=== PATIENT | male | born 1980 | race Caucasian/White ===

== ENCOUNTER 2023-01-17 17:53 | Emergency (ER) | payer OTHER, SELFPAY ==
[2023-01-17] VITALS (8 sets, daily range): BP systolic 134–176; BP diastolic 92–106; PULSE 82–90; RESP 15–27; TEMP 36.3; O2SAT 87–100
--- NOTE | 2023-01-17 18:37 | PC.NURSE ---
accu check 517. pt states his meter has been showing high. states his goes up to 500. noticing blurred vision. weakness, increased thirst and urination.
[2023-01-17 18:46] LABS: Glucose Point of Care > 500 mg/dl (65-105)
[2023-01-17 18:50] LABS: Basophils Absolute Auto 0.1 K/mm3 (0.0-0.1); Eosinophils Absolute Auto 0.5 K/mm3 (0-0.3); Hematocrit 45.5 % (42.0-52.0); Hemoglobin 16.2 g/dL (14.0-18.0); Immature Granulocyte Absolute 0.07 K/mm3 (0.00-0.031); Immature Granulocyte Percent A 0.7 % (0-0.5); Lymphocytes Absolute Auto 2.84 K/mm3 (0.9-3.2); Lymphocytes Percent Auto 28.4 % (18.3-44.2); Mean Corpuscular HGB Conc 35.6 g/dl (32-36); Mean Corpuscular Hemoglobin 29.1 pg (26-34); Mean Corpuscular Volume 81.8 fl (80-100); Mean Platelet Volume 10.2 fl (7.4-10.4); Monocytes Absolute Auto 0.9 K/mm3 (0.1-0.6); Monocytes Percent Auto 8.9 % (2.6-8.5); Neutrophils Absolute Auto 5.6 K/mm3 (1.3-6.7); Platelet Count Result 200 k/mm3 (150-375); Red Blood Count 5.56 M/mm3 (4.6-6.20)
[2023-01-17 19:06] LABS: Beta-Hydroxybutyrate/Acetoacetate 0.08 mmol/L (0.02-0.27)
[2023-01-17 19:08] LABS: Alanine Aminotransferase 25 U/L (6-50); Albumin Level 4.9 g/dL (3.5-5.1); Alkaline Phosphatase 55 U/L (38-126); Anion Gap 14 mmol/L (8-16); Aspartate Amino Transferase 26 U/L (17-59); Bilirubin,Total 0.6 mg/dL (0.2-1.3); Blood Urea Nitrogen 17 mg/dL (9-20); Calcium 9.5 mg/dL (8.4-10.2); Carbon Dioxide 23 mmol/L (22-30); Chloride 93 mmol/L (98-107); Estimated CRCL calculation 134 ml/min; Estimated Glomerular Filt Rate > 60; Glucose 518 mg/dL (65-110); Magnesium 1.9 mg/dL (1.6-2.3); Phosphorus 5.1 mg/dL (2.5-4.5); Potassium 4.3 mmol/L (3.4-5.0); Sodium 130 mmol/L (137-145)
[2023-01-17 19:26] LABS: Glucose Point of Care 441 mg/dl (65-105)
[2023-01-17 19:26] LABS: Appearance Urine Clear (Clear); Bacteria Urine None Seen /hpf; Bilirubin Urine Negative (Negative); Blood Urine 1+ (Negative); Color Urine Yellow (Yellow); Glucose Urine UA 3+ mg/dL (Negative); Ketones Urine Negative (Negative); Leukocyte Esterase Ur 1+ LEU/UL (Negative); Need Manual Microscopic Reviewed; Nitrate Urine Negative (Negative); Non Pathogenic Casts 0-2; Protein Urine Negative (Negative); RBC Urine 0-2 /hpf (0-2); Specific Grav Ur 1.039 (1.001-1.035); Squamous Epithelial Cell Urine None seen /hpf (Few); Urobilinogen Urine 0.2 mg/dL (<2.0); WBC Urine >100 /hpf
[2023-01-17 19:27] LABS: Add Urine Microscopic? YES
--- NOTE | 2023-01-17 19:57 | ED.GENADULT ---
HPI - General Adult General Chief complaint: Unspecified Stated complaint: hyperglycemia- pump issues Time Seen by Provider: 01/17/23 19:11 History of Present Illness HPI narrative: Patient is a 42-year-old male with a history of diabetes presenting with hyperglycemia. Patient states that his insulin pump has run out of insulin and his insurance will not approve a refill for 4 more days. States that his sugars have been running very high and he is concerned. States that he feels thirsty. States he is unable to get into his PCP until February. 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 He denies chest pain, shortness of breath, abdominal pain, nausea or vomiting, diarrhea, dysuria, leg swelling, headaches, numbness or weakness. Related Data Allergies Allergy/AdvReac Type Severity Reaction Status Date / Time No Known Allergies Allergy Verified 01/17/23 21:36 Review of Systems Review of Systems: All systems reviewed & are unremarkable except as noted in HPI and below Exam Narrative: GENERAL: Well-appearing, well-nourished, and in no acute distress. Pleasant and cooperative HEAD: Normocephalic, atraumatic. EYES: PERRLA and EOMI. ENT: Nares clear, no rhinorrhea or epistaxis. Mucous membranes moist. NECK: Supple. CHEST: Clear to auscultation. No respiratory distress. HEART: Regular rate and rhythm ABDOMEN: Soft, nontender, nondistended EXTREMITIES: Normal range of motion. No edema. SKIN: Warm, dry, no rash. NEURO: No focal deficits. Alert and oriented x3. PSYCH: Normal mood and affect. Course Vital Signs Vital signs: Vital Signs Temperature 97.4 F L 01/17/23 18:34 Pulse Rate 88 01/17/23 18:34 Respiratory Rate 16 01/17/23 18:34 Blood Pressure 153/104 H 01/17/23 18:34 Pulse Oximetry 98 01/17/23 18:34 Temperature 97.4 F L 01/17/23 18:34 Pulse Rate 88 01/17/23 21:53 Respiratory Rate 15 01/17/23 21:53 Blood Pressure 146/92 H 01/17/23 21:53 Pulse Oximetry 100 01/17/23 21:53 Medical Decision Making MDM Narrative Medical decision making narrative: Patient is a 42-year-old male presenting with hyperglycemia. Vitals are stable. Exam remarkable for the above. Blood work with glucose of 518. Remainder of blood work is unremarkable. UA appears infected. Patient has been covered with IV antibiotics and has received a liter of fluids as well as subcutaneous insulin. Repeat [id number] glucose is in the 300s. Feel he is safe for outpatient management. We will get him started on Keflex and I have prescribed a new insulin pen for him to use until he can refill his insulin pump. Advised that he try to follow-up closely with his PCP and polymerization engineer. Appropriate return precautions given. Patient voiced understanding and is agreeable with plan. Discharged in stable condition. Differential Diagnosis Differential Diagnosis: DKA, hyperglycemia, UTI, HAYES, dehydration Medical Records Medical records reviewed: Yes I reviewed the external patient's medical records. Vital Signs Vital Signs: Vital Signs Temperature 97.4 F L 01/17/23 18:34 Pulse Rate 88 01/17/23 18:34 Respiratory Rate 16 01/17/23 18:34 Blood Pressure 153/104 H 01/17/23 18:34 Pulse Oximetry 98 01/17/23 18:34 Temperature 97.4 F L 01/17/23 18:34 Pulse Rate 88 01/17/23 21:53 Respiratory Rate 15 01/17/23 21:53 Blood Pressure 146/92 H 01/17/23 21:53 Pulse Oximetry 100 01/17/23 21:53 Lab Data Lab results reviewed: Yes I reviewed the patient's lab results. 01/17/23 18:43 01/17/23 18:43 Labs: Lab Results 01/17/23 01/17/23 01/17/23 Range/Units 18:36 18:43 18:48 WBC 10.0 (4.5-10.0) K/mm3 RBC 5.56 (4.6-6.20) M/mm3 Hgb 16.2 (14.0-18.0) g/dL Hct 45.5 (42.0-52.0) % MCV 81.8 (80-100) fl MCH 29.1 (26-34) pg MCHC 35.6 (32-36) g/dl RDW 12.0 (11.5-14.5) % Plt Count 200 (150-375) k/mm3 MPV 10.2 (7.
[2023-01-17] MEDS: INSULIN GLARGINE (*BKC) 100 UNITS/ML 17 UNITS SUB-Q (20:09)
[2023-01-17] MEDS: INSULIN HUMAN REGULAR (*BKC) 100 UNITS/ML 10 UNITS SUB-Q (20:10)
[2023-01-17] MEDS: LACTATED RINGERS 1,000 ML 999 ML IV CONT (20:11)
[2023-01-17 21:35] LABS: Glucose Point of Care 325 mg/dl (65-105)
== END 2023-01-17 21:54 | disposition home or self-care (01) ==
PROVIDERS: Emergency Medicine; Emergency Provider Emergency Medicine
DX: E11.65 Type 2 diabetes mellitus with hyperglycemia (principal); N39.0 Urinary tract infection, site not specified; Z79.4 Long term (current) use of insulin; Z96.41 Presence of insulin pump (external) (internal)
CPT/HCPCS: 36415; 80053; 81001; 82010; 82948; 83735; 84100; 85025; 87086; 96361; 96365; 99284; J0696; J1815; J7120

== ENCOUNTER 2023-01-18 15:01 | Emergency (ER) | payer OTHER, SELFPAY ==
[2023-01-18 15:10] VITALS: BP 136/86; PULSE 88; RESP 18; TEMP 36.2; O2SAT 97
[2023-01-18 15:16] VITALS: BP 139/104; PULSE 83; RESP 16; TEMP 36.8; O2SAT 99
[2023-01-18 15:21] LABS: Glucose Point of Care > 500 mg/dl (65-105)
--- NOTE | 2023-01-18 16:00 | ED.RECABL ---
HPI - Recheck/Abnormal Lab/Rx General Chief Complaint: Recheck/Abnormal Lab/Rx Stated Complaint: blood sugar is high Time Seen by Provider: 01/18/23 15:35 History of Present Illness HPI narrative: Patient is a 42-year-old male with a history of diabetes presenting with hyperglycemia. Patient was here yesterday and was sent home with antibiotics and a prescription for insulin. States that he picked up his antibiotics this morning but they were not able to fill the insulin. States that his blood sugar continues to be high. Denies further or new complaints. Related Data Allergies Allergy/AdvReac Type Severity Reaction Status Date / Time No Known Allergies Allergy Verified 01/17/23 21:36 Review of Systems Review of Systems: All systems reviewed & are unremarkable except as noted in HPI and below Exam Narrative: GENERAL: Well-appearing, well-nourished, and in no acute distress. HEAD: Normocephalic, atraumatic. EYES: PERRLA and EOMI. ENT: Nares clear, no rhinorrhea or epistaxis. Mucous membranes moist. NECK: Supple. CHEST: No respiratory distress. HEART: Regular rate and rhythm ABDOMEN: Soft, nondistended EXTREMITIES: Normal range of motion. No edema. SKIN: Warm, dry, no rash. NEURO: No focal deficits. Alert and oriented x3. PSYCH: Normal mood and affect. Course Vital Signs Vital signs: Vital Signs Temperature 97.1 F L 01/18/23 15:10 Pulse Rate 88 01/18/23 15:10 Respiratory Rate 18 01/18/23 15:10 Blood Pressure 136/86 01/18/23 15:10 Pulse Oximetry 97 01/18/23 15:10 Temperature 98.3 F 01/18/23 15:16 Pulse Rate 83 01/18/23 15:16 Respiratory Rate 16 01/18/23 15:16 Blood Pressure 139/104 H 01/18/23 15:16 Pulse Oximetry 99 01/18/23 15:16 MDM - Recheck/Abnormal Lab/Rx MDM Narrative Medical decision making narrative: Patient is a 42-year-old male presenting with hyperglycemia. Vitals are stable. Exam remarkable for the above. Patient was here yesterday with similar complaints. He was discharged with a prescription for insulin and Keflex. 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 I actually spoke with the pharmacy several hours ago to clear up any confusion and the pharmacist stated that she would be filling this prescription. Our charge nurse has called the pharmacy and apparently a woman picked up the prescription 1 hour ago. Patient's girlfriend said that maybe she did or maybe her mother did, she is not sure. Upon our discussion, the patient's girlfriend was able to text her mother who confirmed that she did, in fact, berry picker machine operator the patient's insulin. Advised the patient that he needs to start taking this as prescribed. We will give him a dose of subcutaneous insulin while he is here. He states that he was able to get his private insurance started as well so he should be double covered now. Care coordination spoke with the patient and advised that he call his insurance job titles to find an in network front office secretary and primary care provider. I will provide them with the number for our PCP and front office secretary just in case. Appropriate return precautions given. Patient voiced understanding and is agreeable with plan. Discharged in stable condition. Differential Diagnosis Differential diagnosis: Likely encounter for medication refill and other (Hyperglycemia) Medical Records Attestation: I reviewed the patient's medical records. Lab Data Attestation: I reviewed the patient's lab results. Labs: Lab Results 01/18/23 Range/Units 15:18 POC Capillary Glucose > 500 H* (65-105) mg/dl Critical Care Time Critical Care Time Critical Care Time: No Discharge Plan Discharge Clinical Impression: Hyperglycemia Patient Disposition: Home, Self-Care Condition: Stable Instructions: Antibiotic Form, Diabetic Hyperglycemia (ED) Additional Instructions: Please use your insu
[2023-01-18] MEDS: INSULIN HUMAN REGULAR (*BKC) 100 UNITS/ML 10 UNITS (16:59)
[2023-01-18 17:05] VITALS: BP 139/96; PULSE 83; RESP 16; O2SAT 95
== END 2023-01-18 17:06 | disposition home or self-care (01) ==
PROVIDERS: Emergency Provider Emergency Medicine
DX: E11.65 Type 2 diabetes mellitus with hyperglycemia (principal); Z79.4 Long term (current) use of insulin
CPT/HCPCS: 82948; 99283; J1815

== ENCOUNTER 2023-03-20 12:40 | Emergency (ER) | payer OTHER, SELFPAY ==
--- NOTE | ~2023-03-20 | XR_ITS ---
EXAMINATION: XR knee LT 3V DATE: 03/20/2023 13:01 INDICATION: Left knee pain. Fall. TECHNIQUE: 3 views of left knee were obtained. COMPARISON: None. FINDINGS: Bone alignment is normal. No fracture. There is mild tricompartmental osteoarthritis. There is a small knee joint effusion. IMPRESSION: 1. Mild left knee osteoarthritis. 2. Small left knee joint effusion. Reviewed, dictated and finalized at location A.
[2023-03-20 12:49] VITALS: BP 166/120; PULSE 96; RESP 16; TEMP 36.4; O2SAT 100
--- NOTE | 2023-03-20 12:55 | ED.LOWEXIN ---
HPI - Extremity Injury (Lower) General Chief Complaint: Extremity Injury, Lower Stated Complaint: Left knee pain Time Seen by Provider: 03/20/23 12:55 Source: patient, RN notes reviewed and old records reviewed Mode of arrival: ambulatory Limitations: no limitations History of Present Illness HPI Narrative: 42-year-old male presents to the [facility] with complaints of left knee pain and swelling. Patient states that he tripped yesterday landing on his knee. Mild swelling noted to the medial aspect of the left knee No treatment prior to arrival Onset (ago): day(s) (1) Related Data Home Medications Medication Instructions Recorded Confirmed erythromycin 250 mg 250 mg PO DIRECTED 03/20/23 03/20/23 capsule,delayed release insulin glargine 100 unit/mL (3 100 unit subcut DAILY 03/20/23 03/20/23 mL) subcutaneous pen (Lantus Solostar U-100 Insulin) insulin lispro 100 unit/mL See Rx Instructions .Route .COMPLEX 03/20/23 03/20/23 subcutaneous solution (Humalog U-100 Insulin) lisinopril 20 1 tablet PO DAILY 03/20/23 03/20/23 mg-hydrochlorothiazide 25 mg tablet metoprolol succinate 200 mg 200 mg PO DAILY 03/20/23 03/20/23 tablet,extended release 24 hr sucralfate 1 gram tablet 1 g PO DIRECTED 03/20/23 03/20/23 Allergies Allergy/AdvReac Type Severity Reaction Status Date / Time No Known Allergies Allergy Verified 03/20/23 13:02 Review of Systems Review of Systems: All systems reviewed & are unremarkable except as noted in HPI and below Constitutional: Constitutional: Reports no additional constitutional complaints Eyes: Eyes: Reports no additional eye complaints ENT: Reports system reviewed and no additional complaints, except as documented Cardiovascular: Cardiovascular: Reports no additional cardiovascular complaints, Denies chest pain and Denies dyspnea Respiratory: Respiratory: Reports no additional respiratory complaints, Denies chest congestion, Denies cough and Denies dyspnea Gastrointestinal: Gastrointestinal: Reports no additional gastrointestinal complaints, Denies abdominal pain, Denies nausea and Denies vomiting Musculoskeletal: Musculoskeletal: Reports as per HPI, Reports arthralgias and Reports joint swelling Integumentary/Breasts: Skin/Breast: Reports system reviewed and no additional complaints, except as docu Neurologic: Reports system reviewed and no additional complaints, except as documented Psychiatric: Psychiatric: Reports no additional psychiatric complaints Allergic/Immunologic: Allergic/Immunologic: Reports no additional allergic/immunologic complaints [facility] Past Medical History Medical History (Updated 03/20/23 @ 18:53 by Prema Virgen APRN) Diabetes Hypertension Comments At the time of my signature, I reviewed and agree with the nursing past medical, surgical, social, and family history. There is no relevant family history pertinent to the patient complaint. Exam Const: General: cooperative, healthy appearing, comfortable, no acute distress, well developed, alert and well nourished Nutritional Appearance: well nourished Orientation/consciousness: patient oriented x3 Limitations: no limitations HENMT: Head: normal to inspection Ears: hearing grossly normal bilaterally and external ears normal Face/Nose/Sinus: Normal external nose present, Normal nares present, Normal nasal mucous membranes and turbinates present, normal facial exam and face symmetric Face and sinus: normal facial exam and face symmetric Eyes: General: appearance normal, both eyes and all related structures Alignment and Position: alignment normal Periorbital: periorbital findings normal Pupils: Equal, round and reactive pupils present EOM: EOMs intact bilaterally Neck: Neck: normal visual inspection, full ROM, no lymphadenopathy and no meningeal signs Chest: Chest palpation & inspection: normal inspection of the chest Resp: Effort & Inspection: normal respiratory effort and able
== END 2023-03-20 13:17 | disposition home or self-care (01) ==
PROVIDERS: Emergency Provider Nurse Practitioner
DX: M25.462 Effusion, left knee (principal); M17.12 Unilateral primary osteoarthritis, left knee; E11.9 Type 2 diabetes mellitus without complications; Z79.4 Long term (current) use of insulin; I10 Essential (primary) hypertension
CPT/HCPCS: 73562; 99213; G0463

== ENCOUNTER 2023-07-26 19:31 | Emergency (ER) | payer OTHER, MEDICAID, SELFPAY ==
--- NOTE | ~2023-07-26 | XR_ITS ---
EXAMINATION: XR chest 2V DATE: 07/26/2023 20:04 INDICATION: Chest pain. TECHNIQUE: Frontal and lateral views of the chest were obtained. COMPARISON: None. FINDINGS: There is no pneumonia, pleural effusion, or pneumothorax. The heart size is normal. IMPRESSION: 1. No acute cardiopulmonary disease. Reviewed, dictated and finalized at location E. 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
--- NOTE | 2023-07-26 19:35 | ECG_ITS ---
Measurements Intervals [place] Rate: 105 P: 63 ID: 144 QRS: 24 QRSD: 88 T: 35 QT: 319 QTc: 423 Interpretive Statements SINUS TACHYCARDIA WITH OCCASIONAL SUPRAVENTRICULAR PREMATURE COMPLEXES BASELINE ARTIFACT ABNORMAL RHYTHM ECG NO PREVIOUS ECG AVAILABLE FOR COMPARISON Electronically Signed On 07-27-2023 16:18:33 WASHHOUSE HAND by Tyler Collins M.D.
[2023-07-26 19:43] VITALS: BP 149/96; PULSE 104; RESP 20; TEMP 36.4; O2SAT 98
[2023-07-26 20:00] LABS: Basophils Absolute Auto 0.1 K/mm3 (0.0-0.1); Basophils Percent Auto 0.7 % (0.2-1.2); Eosinophils Absolute Auto 0.4 K/mm3 (0-0.3); Eosinophils Percent Auto 3.6 % (0-4.4); Hematocrit 47.3 % (42.0-52.0); Hemoglobin 15.8 g/dL (14.0-18.0); Immature Granulocyte Absolute 0.04 K/mm3 (0.00-0.031); Immature Granulocyte Percent A 0.4 % (0-0.5); Lymphocytes Absolute Auto 2.65 K/mm3 (0.9-3.2); Lymphocytes Percent Auto 26.7 % (18.3-44.2); Mean Corpuscular HGB Conc 33.4 g/dl (32-36); Mean Corpuscular Hemoglobin 27.7 pg (26-34); Mean Corpuscular Volume 82.8 fl (80-100); Monocytes Absolute Auto 0.8 K/mm3 (0.1-0.6); Monocytes Percent Auto 7.7 % (2.6-8.5); Neutrophils Percent Auto 60.9 % (45.5-73.1); Platelet Count Result 215 k/mm3 (150-375); Red Blood Count 5.71 M/mm3 (4.6-6.20); Red Cell Distribution Width 12.3 % (11.5-14.5); White Blood Count 9.9 K/mm3 (4.5-10.0)
[2023-07-26 20:10] LABS: Alanine Aminotransferase 17 U/L (6-50); Albumin Level 4.4 g/dL (3.5-5.1); Alkaline Phosphatase 63 U/L (38-126); Anion Gap 7 mmol/L (8-16); Aspartate Amino Transferase 23 U/L (17-59); Bilirubin,Total 0.7 mg/dL (0.2-1.3); Blood Urea Nitrogen 15 mg/dL (9-20); Carbon Dioxide 27 mmol/L (22-30); Chloride 100 mmol/L (98-107); Estimated CRCL calculation 152 ml/min; Estimated Glomerular Filt Rate > 60; Glucose 199 mg/dL (65-110); Lipase 106 U/L (23-300); Potassium 3.9 mmol/L (3.4-5.0); Sodium 134 mmol/L (137-145)
[2023-07-26 20:11] LABS: INR 0.9; Partial Thromboplastin Time 26.2 SECONDS (22.3-36.8); Prothrombin Time 12.8 Seconds (11.1-14.7)
[2023-07-26 20:22] LABS: Troponin I < 0.012 ng/mL (0.000-0.034)
--- NOTE | 2023-07-26 23:27 | PC.NURSE ---
patient reports that he is feeling better and left from waiting room
== END 2023-07-26 23:27 | disposition left against medical advice (07) ==
LOC: ANHED 07-27 01:44
PROVIDERS: Emergency Provider Emergency Medicine
DX: R07.9 Chest pain, unspecified (principal)
CPT/HCPCS: 36415; 71046; 80053; 83690; 84484; 85025; 85610; 85730; 93005; 99199

== ENCOUNTER 2023-10-24 15:40 | Outpatient (CLI) | payer OTHER, MEDICAID, SELFPAY ==
[2023-10-24 16:42] LABS: Basophils Absolute Auto 0.06 K/mm3 (0.00-0.10); Basophils Percent Auto 0.5 % (0.0-1.0); Eosinophils Absolute Auto 0.29 K/mm3 (0.02-0.50); Eosinophils Percent Auto 2.6 % (1.0-6.0); Hematocrit 50.3 % (40.0-54.0); Hemoglobin 16.6 g/dL (14.0-18.0); Immature Granulocyte Absolute 0.06 K/mm3 (0.00-0.00); Immature Granulocyte Percent A 0.5 % (0.0-0.0); Lymphocytes Absolute Auto 2.53 K/mm3 (1.10-4.50); Lymphocytes Percent Auto 22.4 % (18.0-42.0); Mean Corpuscular Hemoglobin 27.2 pg (27.0-31.0); Mean Corpuscular Volume 82.5 fL (78.0-102.0); Mean Platelet Volume 10.4 fl (8.7-11.0); Monocytes Absolute Auto 0.76 K/mm3 (0.10-0.90); Monocytes Percent Auto 6.7 % (2.0-11.0); Neutrophils Absolute Auto 7.59 K/mm3 (1.70-7.20); Neutrophils Percent Auto 67.3 % (50.0-70.0); Platelet Count Result 235 K/mm3 (150-420); Red Cell Distribution Width 12.5 % (11.6-14.4); White Blood Count 11.3 K/mm3 (4.8-10.8)
[2023-10-24 23:18] LABS: Hemoglobin A1C 9.2 % (<5.7)
[2023-10-25] LABS: Alanine Aminotransferase 10 U/L (16-63); Albumin Level 4.4 g/dL (3.4-5.0); Alkaline Phosphatase 62 U/L (46-116); Anion Gap 12 mmol/L (4-12); Aspartate Amino Transferase 13 U/L (15-37); Bilirubin,Total 1.2 mg/dL (0.00-1.00); Blood Urea Nitrogen 39 mg/dL (7-18); Calcium 9.2 mg/dL (8.5-10.1); Carbon Dioxide 26 mmol/L (21-32); Chloride 93 mmol/L (98-108); Cholesterol 159 mg/dL (0-200); Estimated Glomerular Filt Rate 52; Free T4 Free Thyroxine 0.92 ng/dL (0.76-1.46); Glucose 269 mg/dL (70-99); HDL Direct 32 mg/dL (40-60); LDL Cholesterol Calculated 63 mg/dL (<130); Osmolality Calculated 290 mOsm/kg (285-295); Potassium 4.3 mmol/L (3.5-5.1); Sodium 131 mmol/L (136-145); Thyroid Stimulating Hormone 3.07 uIU/mL (0.36-3.74); Total Protein 7.5 g/dL (6.4-8.2); Triglycerides 322 mg/dL (0-150)
[2023-10-27 23:58] LABS: Vitamin D 25 Hydroxy 30 ng/mL (30-100)
== END 2023-10-24 15:41 | disposition home or self-care (01) ==
PROVIDERS: PCP Nurse Practitioner Family; Visit Provider Nurse Practitioner Family
DX: Z13.6 Encounter for screening for cardiovascular disorders (principal); E11.9 Type 2 diabetes mellitus without complications; Z79.899 Other long term (current) drug therapy; E78.5 Hyperlipidemia, unspecified; E04.9 Nontoxic goiter, unspecified; I10 Essential (primary) hypertension; Z68.32 Body mass index [BMI] 32.0-32.9, adult
CPT/HCPCS: 36415; 80053; 80061; 82306; 83036; 84439; 84443; 85025

== ENCOUNTER 2023-11-02 19:16 | Emergency (ER) | payer OTHER, MEDICAID, SELFPAY ==
[2023-11-02] VITALS (10 sets, daily range): BP systolic 126–139; BP diastolic 88–96; PULSE 95–112; RESP 17–24; TEMP 36.1; O2SAT 97–98
--- NOTE | ~2023-11-02 | XR_ITS ---
EXAMINATION: XR chest 1V portable Exam Date/Time: 11/02/2023 20:08 CDT HISTORY: LEFT SIDE CP X 27 HOURS Comparison: 07/26/2023. RESULT: Lines, tubes, and devices: None. Lungs and pleura: Clear. Cardiomediastinal silhouette: Stable. Other: No acute osseous or upper abdominal finding. IMPRESSION: No acute cardiopulmonary process. Reviewed, dictated and finalized at location K.
--- NOTE | 2023-11-02 19:23 | ECG_ITS ---
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 Measurements Intervals [place] Rate: 111 P: 59 OR: 135 QRS: 11 QRSD: 88 T: 28 QT: 307 QTc: 418 Interpretive Statements SINUS TACHYCARDIA WITH OCCASIONAL ECTOPIC PREMATURE COMPLEXES BASELINE ARTIFACT- I, II, III, AVR, AVL, AVF, V1 ABNORMAL ECG No previous ECG available for comparison Electronically Signed On 11-03-2023 13:28:19 CDT by Kasi Dumas D.O.
--- NOTE | 2023-11-02 19:45 | ED.CHESTPAIN ---
HPI - Chest Pain General Chief Complaint: Chest Pain Stated Complaint: Chest Pain Time Seen by Provider: 11/02/23 19:40 Source: patient Mode of arrival: ambulatory Limitations: no limitations History of Present Illness HPI narrative: 43-year-old male smoker with a history of anxiety / depression, hypertension, diabetes mellitus, dyslipidemia presents to the ER with a 1 day history of -- substernal chest pain radiating to the left and shoulder. The pain started yesterday and was rated at 5/10. It was unprovoked. He has had the pain off and on since yesterday but it got worse today and rated it as 9/10. the pain radiated to his left shoulder. No nausea/ vomiting. No diaphoresis. No shortness of breath. No lightheadedness . The patient called EMS gave him 3 tablets of Aspirin and 2 sublingual nitros. His pain decreased from 09/10 to 7/10 with the sublingual nitro. the patient had a negative stress test 2 years ago for chest pains. -- Increasing cough with sputum production over the past few days MD complaint: chest pain Onset (ago): day(s) ( One day) Timing of current episode: episodic Prior episodes: Yes Onset: during rest Pain location: substernal Pain radiation: left arm Severity: moderate Quality: aching Relieving factors: nothing Exacerbating factors: nothing Treatment prior to arrival: none Risk Factors Coronary artery disease risk factors: diabetes, smoking history, hyperlipidemia and hypertension Thoracic aortic dissection risk factors: longstanding hypertension Related Data Home Medications Medication Instructions Recorded Confirmed erythromycin 250 mg 250 mg PO DIRECTED 03/20/23 10/24/23 capsule,delayed release insulin glargine 100 unit/mL (3 100 unit subcut DAILY 03/20/23 10/24/23 mL) subcutaneous pen (Lantus Solostar U-100 Insulin) lisinopril 20 1 tablet PO DAILY 03/20/23 10/24/23 mg-hydrochlorothiazide 25 mg tablet metoprolol succinate 200 mg 200 mg PO DAILY 03/20/23 10/24/23 tablet,extended release 24 hr sucralfate 1 gram tablet 1 g PO DIRECTED 03/20/23 10/24/23 aspirin 81 mg tablet,delayed 81 mg PO DAILY 10/24/23 10/24/23 release atorvastatin 40 mg tablet 40 mg PO DAILY 10/24/23 10/24/23 dapagliflozin propanediol 10 mg 10 mg PO DAILY 10/24/23 10/24/23 tablet (Farxiga) prazosin 2 mg capsule 2 mg PO BID 10/24/23 10/24/23 Allergies Allergy/AdvReac Type Severity Reaction Status Date / Time Penicillins Allergy Severe Hives Verified 10/24/23 14:59 Review of Systems Review of Systems: All systems reviewed & are unremarkable except as noted in HPI and below Constitutional: Constitutional: Reports as per HPI and Reports no additional constitutional complaints Eyes: Eyes: Reports as per HPI and Reports no additional eye complaints ENT: Reports system reviewed and no additional complaints, except as documented and Reports as per HPI Cardiovascular: Cardiovascular: Reports as per HPI, Reports no additional cardiovascular complaints and Reports chest pain Comments: substernal chest pain radiating to the left shoulder Respiratory: Respiratory: Reports as per HPI, Reports no additional respiratory complaints and Reports cough Comments: patient has daily cough with sputum production. He has has this more more than a month Gastrointestinal: Gastrointestinal: Reports as per HPI and Reports no additional gastrointestinal complaints Genitourinary: Genitourinary: Reports no additional male genitourinary complaints Musculoskeletal: Musculoskeletal: Reports no additional musculoskeletal complaints and Reports as per HPI Integumentary/Breasts: Skin/Breast: Reports system reviewed and no additional complaints, except as docu and Reports as per HPI Neurologic: Reports system reviewed and no additional complaints, except as documented and Reports as per HPI Psychiatric: Psychiatric: Reports no additional psychiatric complaints and Reports as per HPI Endocrine: Endocrine
[2023-11-02 20:21] LABS: Basophils Absolute Auto 0.05 K/mm3 (0.00-0.10); Basophils Percent Auto 0.4 % (0.0-1.0); Eosinophils Percent Auto 1.6 % (1.0-6.0); Hematocrit 46.9 % (40.0-54.0); Hemoglobin 15.5 g/dL (14.0-18.0); Immature Granulocyte Absolute 0.07 K/mm3 (0.00-0.00); Immature Granulocyte Percent A 0.6 % (0.0-0.0); Lymphocytes Absolute Auto 2.75 K/mm3 (1.10-4.50); Lymphocytes Percent Auto 22.1 % (18.0-42.0); Mean Corpuscular Hemoglobin 27.6 pg (27.0-31.0); Mean Corpuscular Volume 83.6 fL (78.0-102.0); Mean Platelet Volume 9.7 fl (8.7-11.0); Monocytes Absolute Auto 0.71 K/mm3 (0.10-0.90); Monocytes Percent Auto 5.7 % (2.0-11.0); Neutrophils Absolute Auto 8.68 K/mm3 (1.70-7.20); Neutrophils Percent Auto 69.6 % (50.0-70.0); Platelet Count Result 232 K/mm3 (150-420); Red Blood Count 5.61 M/mm3 (4.70-6.10); Red Cell Distribution Width 12.6 % (11.6-14.4); White Blood Count 12.5 K/mm3 (4.8-10.8)
[2023-11-02 20:41] LABS: Lactic Acid Reflex 0.9 mmol/L (0.4-2.0)
[2023-11-02 20:50] LABS: Alanine Aminotransferase 11 U/L (16-63); Albumin Level 3.6 g/dL (3.4-5.0); Alkaline Phosphatase 58 U/L (46-116); Anion Gap 9 mmol/L (4-12); Aspartate Amino Transferase 15 U/L (15-37); Bilirubin,Total 0.4 mg/dL (0.00-1.00); Blood Urea Nitrogen 14 mg/dL (7-18); Calcium 9.2 mg/dL (8.5-10.1); Carbon Dioxide 32 mmol/L (21-32); Chloride 101 mmol/L (98-108); Estimated CRCL calculation 107 ml/min; Estimated Glomerular Filt Rate > 60; Glucose 119 mg/dL (70-99); Lipase 68 U/L (16-77); NT Pro B Type Natriuretic Pept 30 pg/mL (0-125); Osmolality Calculated 295 mOsm/kg (285-295); Potassium 4.3 mmol/L (3.5-5.1); Sodium 142 mmol/L (136-145); Total Protein 7.2 g/dL (6.4-8.2); Troponin I < 4.0 ng/L (0.00-60.4)
--- NOTE | 2023-11-02 20:50 | PC.NURSE ---
PATIENT UPDATE PROVIDED. PATIENT RESTING ON STRETCHER WITHOUT DISTRESS, USING CELL PHONE. PATIENT REPORTS HEADACHE. RN PROVIDED EDUCATION, NOTIFIED ERP. VSS. CALL LIGHT WITHIN REACH.
[2023-11-02] MEDS: KETOROLAC 30 MG/ML VIAL (*BKC) IV PUSH (21:22)
== END 2023-11-02 21:53 | disposition home or self-care (01) ==
PROVIDERS: Emergency Provider Internal Medicine Critical Care Medicine; PCP Nurse Practitioner Family
DX: R07.9 Chest pain, unspecified (principal); F41.9 Anxiety disorder, unspecified; J42 Unspecified chronic bronchitis; R05.9 Cough, unspecified; I10 Essential (primary) hypertension; E11.9 Type 2 diabetes mellitus without complications; E78.5 Hyperlipidemia, unspecified; F32.A Depression, unspecified; Z79.4 Long term (current) use of insulin; Z79.84 Long term (current) use of oral hypoglycemic drugs; Z79.82 Long term (current) use of aspirin; Z79.51 Long term (current) use of inhaled steroids
CPT/HCPCS: 36415; 71045; 80053; 83605; 83690; 83880; 84484; 85025; 93005; 96374; 99284; J1885

== ENCOUNTER 2023-11-29 08:32 | Outpatient (CLI) | payer OTHER, MEDICAID, SELFPAY ==
--- NOTE | ~2023-11-29 | NM_ITS ---
EXAM: NM gastric emptying study DATE: 11/29/2023 13:05 INDICATION: Nausea. TECHNIQUE: A gastric emptying study was performed using the methodology of Makayla DANG, et al. J Nucl Med 2007; 48:568-572. The patient was given a meal consisting of 2 scrambled eggs labeled with 1.029 mCi Tc-99m sulfur colloid, 2 slices of toast, two packages of jam, and approximately 120 mL of water . Simultaneous anterior and posterior 1-min images of the abdomen were obtained with the patient supi ne at multiple time points over a total period of 4 hours. The geometric mean of anterior and posteri or views was determined, and the percentage retention was calculated for each time point. COMPARISON: None. FINDINGS: Gastric retention of the radiotracer-labeled meal was 49%, 25%, and 5% at the 1-hour, 2-ho ur, and 4-hour time points, respectively. With this technique, apparent rapid gastric emptying is sug gested by <30% gastric retention at 1 hour. Delayed gastric emptying is defined by gastric retention of >90% at 1 hour, >60% retention at 2 hours, or >10% retention at 4 hours. IMPRESSION: 1. Normal gastric emptying. Reviewed, dictated and finalized at location A. IMPRESSION: 1. Normal gastric emptying.
== END 2023-11-29 08:33 | disposition home or self-care (01) ==
LOC: ANHIMG 08:34
PROVIDERS: PCP Nurse Practitioner Family; Visit Provider Nurse Practitioner Family
DX: R13.10 Dysphagia, unspecified (principal); R11.0 Nausea; R68.81 Early satiety
CPT/HCPCS: 78264; A9541

== ENCOUNTER 2024-01-02 15:02 | Emergency (ER) | payer MEDICAID, SELFPAY ==
--- NOTE | ~2024-01-02 | XR_ITS ---
EXAMINATION: XR chest 2V DATE: 01/02/2024 15:26 INDICATION: Chest pain. Hypertension. TECHNIQUE: PA and lateral views of the chest were obtained. COMPARISON: Chest radiograph dated 11/02/23 FINDINGS: The lungs remain clear with no focal airspace opacities, pulmonary edema, pleural effusion or pneumot horax. The cardiomediastinal silhouette is normal. Visualized bones and soft tissues are unremarkable . IMPRESSION: 1. No acute cardiopulmonary disease. Reviewed, dictated and finalized at location A.
--- NOTE | 2024-01-02 15:06 | ECG_ITS ---
Test Date: 2024-01-02 15:10:48 Measurements Intervals [place] Rate: 89 P: 59 RI: 146 QRS: 21 QRSD: 94 T: 37 QT: 340 QTc: 414 Interpretive Statements SINUS RHYTHM CONSIDER INFERIOR INFARCT, AGE INDETERMINATE ABNORMAL ECG Compared to ECG 11/02/2023 19:19:30 Sinus tachycardia no longer present Electronically Signed On 01-02-2024 15:11:58 CDT by Kasi Dumas D.O.
[2024-01-02 15:09] VITALS: BP 136/85; PULSE 92; RESP 24; TEMP 36.8; O2SAT 97
[2024-01-02 15:20] VITALS: O2SAT 100
[2024-01-02 15:35] LABS: Basophils Absolute Auto 0.1 K/mm3 (0.0-0.1); Basophils Percent Auto 0.7 % (0.2-1.2); Eosinophils Absolute Auto 0.5 K/mm3 (0-0.3); Hematocrit 45.2 % (42.0-52.0); Hemoglobin 15.8 g/dL (14.0-18.0); Immature Granulocyte Percent A 0.8 % (0-0.5); Lymphocytes Absolute Auto 2.82 K/mm3 (0.9-3.2); Lymphocytes Percent Auto 23.5 % (18.3-44.2); Mean Corpuscular Hemoglobin 28.9 pg (26-34); Mean Corpuscular Volume 82.6 fl (80-100); Mean Platelet Volume 10.4 fl (7.4-10.4); Monocytes Absolute Auto 0.8 K/mm3 (0.1-0.6); Monocytes Percent Auto 6.5 % (2.6-8.5); Neutrophils Absolute Auto 7.7 K/mm3 (1.3-6.7); Neutrophils Percent Auto 64.5 % (45.5-73.1); Platelet Count Result 214 k/mm3 (150-375); Red Blood Count 5.47 M/mm3 (4.6-6.20); Red Cell Distribution Width 12.8 % (11.5-14.5)
[2024-01-02] MEDS: ASPIRIN 81 MG CHEWABLE TABLET 324 MG PO (15:42)
[2024-01-02 15:45] LABS: INR 0.9; Prothrombin Time 12.8 Seconds (11.1-14.7)
[2024-01-02 15:46] LABS: Partial Thromboplastin Time 25.4 Seconds (22.3-36.8)
[2024-01-02 15:47] VITALS: BP 125/76; PULSE 90; RESP 20; O2SAT 99
[2024-01-02 16:13] LABS: Alanine Aminotransferase 11 U/L (6-50); Albumin Level 4.4 g/dL (3.5-5.1); Alkaline Phosphatase 77 U/L (38-126); Anion Gap 9 mmol/L (4-12); Aspartate Amino Transferase 18 U/L (17-59); Bilirubin,Total 0.7 mg/dL (0.2-1.3); Blood Urea Nitrogen 14 mg/dL (9-20); Calcium 9.3 mg/dL (8.4-10.2); Carbon Dioxide 29 mmol/L (22-30); Chloride 95 mmol/L (98-107); Estimated CRCL calculation 144 ml/min; Estimated Glomerular Filt Rate > 60; Glucose 417 mg/dL (65-110); Lipase 219 U/L (23-300); Potassium 4.1 mmol/L (3.4-5.0); Sodium 133 mmol/L (137-145)
[2024-01-02 16:19] LABS: Troponin I < 0.012 ng/mL (0.000-0.034)
[2024-01-02 16:29] VITALS: BP 134/76; PULSE 80; RESP 20; O2SAT 96
--- NOTE | 2024-01-02 16:41 | PC.NURSE ---
pressure dressing placed on wound to control bleeding. patient educated to not use the thumb and move it excessively while we wait for the bleeding to stop
[2024-01-02 17:14] LABS: Influenza A QL RT-PCR Negative (Negative); Influenza B QL RT-PCR Negative (Negative); RSV RNA, RT-PCR Negative (Negative); SARS-CoV-2 RNA PCR Negative (Negative)
--- NOTE | 2024-01-02 17:14 | ED.GENADULT ---
HPI - General Adult General Chief complaint: Chest Pain Stated complaint: chest pain, SOB Time Seen by Provider: 01/02/24 15:16 History of Present Illness HPI narrative: This is a 43-year-old male presenting ED with a chief complaint chest pain. Patient says the chest pain woke him from sleep this morning. He says it feels like elephant sitting on his chest. The pain is constant. He says he has had pain like this in the past when he had bronchitis. There are no exacerbating alleviating factors. It is associated with a productive cough. He denies fevers chills nausea vomiting diaphoresis or exertional component. Related Data Home Medications Medication Instructions Recorded Confirmed insulin glargine 100 unit/mL (3 100 unit subcut DIRECTED 03/20/23 12/26/23 mL) subcutaneous pen (Lantus Solostar U-100 Insulin) lisinopril 20 1 tablet PO DAILY 03/20/23 12/26/23 mg-hydrochlorothiazide 25 mg tablet metoprolol succinate 200 mg 200 mg PO DAILY 03/20/23 12/26/23 tablet,extended release 24 hr aspirin 81 mg tablet,delayed 81 mg PO DAILY 10/24/23 12/26/23 release atorvastatin 40 mg tablet 40 mg PO DAILY 10/24/23 12/26/23 dapagliflozin propanediol 10 mg 10 mg PO DAILY 10/24/23 12/26/23 tablet (Farxiga) gabapentin 300 mg capsule 300 mg PO BID 12/26/23 12/26/23 Allergies Allergy/AdvReac Type Severity Reaction Status Date / Time Penicillins Allergy Severe Hives Verified 01/02/24 15:13 [facility] Past Medical History Medical History Diabetes Hypertension Treadmill stress test negative for angina pectoris Social History Social History Smoking packs per day: 0.5 Smoking cigarettes per day: 10.0 Smoking status: Current every day smoker Tobacco type: cigarettes Alcohol intake: former Substance use: never Substance use type: does not use Living arrangements: alone Spiritual care concerns: No Exam Narrative: APPEARANCE: No apparent distress. Head: atraumatic. EYES: EOMI, NOSE: Atraumatic NECK: Trachea midline RESPIRATORY: No increased rate of breathing clear auscultation CARDIOVASCULAR: RRR, no peripheral edema ABDOMINAL: Non-distended soft nontender MUSCULOSKELETAl: No obvious deformities NEURO: Alert. Moving 4/4 extremities SKIN:: Warm, dry. Normal color PSYCHIATRIC: Normal affect Course Vital Signs Vital signs: Vital Signs Temperature 98.2 F 01/02/24 15:09 Pulse Rate 92 01/02/24 15:09 Respiratory Rate 24 H 01/02/24 15:09 Blood Pressure 136/85 01/02/24 15:09 Pulse Oximetry 97 01/02/24 15:09 Oxygen Delivery Room Air 01/02/24 15:09 Temperature 98.2 F 01/02/24 15:09 Pulse Rate 76 01/02/24 18:05 Respiratory Rate 18 01/02/24 18:05 Blood Pressure 126/80 01/02/24 18:05 Pulse Oximetry 97 01/02/24 18:05 Oxygen Delivery Room Air 01/02/24 15:20 Medical Decision Making MDM Narrative Medical decision making narrative: -Course: 43-year-old male presenting with chest discomfort. ACS workup negative. Lung exam clear. Chest x-ray without evidence of pneumonia. Viral swabs negative. Patient resting comfortably with no objective signs of respiratory distress. Patient informed of his results and instructed to follow up with primary care physician in 1-2 days. Given return precautions. After I discussed the patient's results with him he requested something for heartburn is he says he frequently has care -DDX includes but is not limited to: Bronchitis, ACS, pneumonia, pneumothorax -Co-morbidities complicating care: Hypertension, diabetes, high cholesterol -Independent interpretation of studies: White count 12, troponin undetectable. Independent EKG interpretation: Rhythm [sinus], Rate [89], [place] -[normal], [place] -[normal], QRS [narrow], QTC [normal], T waves -[negative for concerning inversions], ST Segments - [Negative for concerni
[2024-01-02] MEDS: ACETAMINOPHEN 500 MG TABLET 1000 MG PO (17:23)
[2024-01-02] MEDS: KETOROLAC 15 MG/ML VIAL (*BKC) IV PUSH (17:24)
[2024-01-02 18:05] VITALS: BP 126/80; PULSE 76; RESP 18; O2SAT 97
--- NOTE | 2024-01-02 18:17 | ECG_ITS ---
Test Date: 2024-01-02 18:27:31 Measurements Intervals [place] Rate: 77 P: 57 NV: 154 QRS: 24 QRSD: 100 T: 37 QT: 359 QTc: 407 Interpretive Statements SINUS RHYTHM INCOMPLETE RIGHT BUNDLE BRANCH BLOCK CONSIDER INFERIOR INFARCT, AGE INDETERMINATE ABNORMAL ECG Compared to ECG 01/02/2024 15:10:48 Electronically Signed On 01-02-2024 19:37:34 CDT by Kasi Dumas D.O.
[2024-01-02 19:02] LABS: Troponin I < 0.012 ng/mL (0.000-0.034)
[2024-01-02 19:39] VITALS: BP 130/79; PULSE 68; RESP 17; O2SAT 97
== END 2024-01-02 19:41 | disposition home or self-care (01) ==
PROVIDERS: Emergency Provider Emergency Medicine; PCP Family Medicine
DX: R07.89 Other chest pain (principal); Z20.822 Contact with and (suspected) exposure to COVID-19; E11.9 Type 2 diabetes mellitus without complications; Z79.4 Long term (current) use of insulin; I10 Essential (primary) hypertension
CPT/HCPCS: 36415; 71046; 80053; 83690; 84484; 85025; 85610; 85730; 87637; 93005; 96374; 99284; A9270; J1885

== ENCOUNTER 2024-01-10 15:02 | Emergency (ER) | payer MEDICAID, SELFPAY ==
--- NOTE | ~2024-01-10 | XR_ITS ---
EXAM: XR wrist RT min 3V DATE: 01/10/2024 15:33 HISTORY: pain x 1 hour hx of fracture . COMPARISON: None available. FINDINGS: Normal mineralization. No fracture or dislocation. No lytic or blastic lesion. Joint space s are maintained. No erosion or periosteal change. Soft tissues within normal limits. IMPRESSION: No acute osseous finding in the right wrist. Reviewed, dictated and finalized at location K.
--- NOTE | 2024-01-10 15:09 | ED.UPPEXIN ---
HPI - Extremity Injury (Upper) General Chief Complaint: Extremity Problem,Nontraumatic Stated Complaint: right wrist pain Time Seen by Provider: 01/10/24 15:17 Source: patient, RN notes reviewed and old records reviewed Mode of arrival: ambulatory Limitations: no limitations History of Present Illness HPI narrative: 43-year-old male presents to the [facility] with complaints of right wrist pain denies any injury happened just prior to arrival. 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 Patient reports history of fracture to the same wrist many years ago. Related Data Home Medications Medication Instructions Recorded Confirmed insulin glargine 100 unit/mL (3 100 unit subcut DIRECTED 03/20/23 01/10/24 mL) subcutaneous pen (Lantus Solostar U-100 Insulin) lisinopril 20 1 tablet PO DAILY 03/20/23 01/10/24 mg-hydrochlorothiazide 25 mg tablet metoprolol succinate 200 mg 200 mg PO DAILY 03/20/23 01/10/24 tablet,extended release 24 hr aspirin 81 mg tablet,delayed 81 mg PO DAILY 10/24/23 01/10/24 release atorvastatin 40 mg tablet 40 mg PO DAILY 10/24/23 01/10/24 dapagliflozin propanediol 10 mg 10 mg PO DAILY 10/24/23 01/10/24 tablet (Farxiga) gabapentin 300 mg capsule 300 mg PO BID 12/26/23 01/10/24 Allergies Allergy/AdvReac Type Severity Reaction Status Date / Time Penicillins Allergy Severe Hives Verified 01/10/24 15:11 Review of Systems Review of Systems: All systems reviewed & are unremarkable except as noted in HPI and below Constitutional: Constitutional: Reports no additional constitutional complaints Eyes: Eyes: Reports no additional eye complaints ENT: Reports system reviewed and no additional complaints, except as documented Cardiovascular: Cardiovascular: Reports no additional cardiovascular complaints, Denies chest pain and Denies dyspnea Respiratory: Respiratory: Reports no additional respiratory complaints, Denies chest congestion, Denies cough and Denies dyspnea Gastrointestinal: Gastrointestinal: Reports no additional gastrointestinal complaints, Denies abdominal pain, Denies nausea and Denies vomiting Musculoskeletal: Musculoskeletal: Reports as per HPI, Reports arthralgias and Denies joint swelling Integumentary/Breasts: Skin/Breast: Reports system reviewed and no additional complaints, except as docu Neurologic: Reports system reviewed and no additional complaints, except as documented Psychiatric: Psychiatric: Reports no additional psychiatric complaints Allergic/Immunologic: Allergic/Immunologic: Reports no additional allergic/immunologic complaints [facility] Past Medical History Medical History Diabetes Hypertension Treadmill stress test negative for angina pectoris Social History Social History Smoking packs per day: 0.5 Smoking cigarettes per day: 10.0 Smoking status: Current every day smoker Tobacco type: cigarettes Alcohol intake: former Substance use: never Substance use type: does not use Living arrangements: alone Spiritual care concerns: No Comments At the time of my signature, I reviewed and agree with the nursing past medical, surgical, social, and family history. There is no relevant family history pertinent to the patient complaint. Exam Const: General: cooperative, healthy appearing, comfortable, no acute distress, well developed, alert and well nourished Nutritional Appearance: well nourished Orientation/consciousness: patient oriented x3 Limitations: no limitations HENMT: Head: normal to inspection Ears: hearing grossly normal bilaterally and external ears normal Face/Nose/Sinus: Normal external nose present, Normal nares present, Normal nasal mucous membranes and turbinates present, normal facial exam and face symmetric Face and sinus: normal facial exam and face symmetric Eyes: General: appearance normal, amina
[2024-01-10 15:10] VITALS: BP 119/76; PULSE 91; RESP 14; TEMP 37; O2SAT 98
== END 2024-01-10 15:45 | disposition home or self-care (01) ==
PROVIDERS: Emergency Provider Nurse Practitioner; PCP Family Medicine
DX: S63.501A Unspecified sprain of right wrist, initial encounter (principal); S66.911A Strain of unspecified muscle, fascia and tendon at wrist and hand level, right hand, initial encounter; X58.XXXA Exposure to other specified factors, initial encounter; E11.9 Type 2 diabetes mellitus without complications; Z79.4 Long term (current) use of insulin; I10 Essential (primary) hypertension; Z79.82 Long term (current) use of aspirin
CPT/HCPCS: 73110; 99213; G0463

== ENCOUNTER 2024-03-06 08:00 | Outpatient (CLI) | payer OTHER, SELFPAY ==
[2024-03-06 08:33] LABS: Basophils Percent Auto 0.4 % (0.2-1.2); Eosinophils Absolute Auto 0.5 K/mm3 (0-0.3); Eosinophils Percent Auto 4.9 % (0-4.4); Hematocrit 46.3 % (42.0-52.0); Hemoglobin 15.7 g/dL (14.0-18.0); Immature Granulocyte Absolute 0.03 K/mm3 (0.00-0.031); Immature Granulocyte Percent A 0.3 % (0-0.5); Lymphocytes Absolute Auto 2.08 K/mm3 (0.9-3.2); Lymphocytes Percent Auto 22.2 % (18.3-44.2); Mean Corpuscular HGB Conc 33.9 g/dl (32-36); Mean Corpuscular Hemoglobin 28.3 pg (26-34); Mean Corpuscular Volume 83.6 fl (80-100); Mean Platelet Volume 10.5 fl (7.4-10.4); Monocytes Absolute Auto 0.8 K/mm3 (0.1-0.6); Monocytes Percent Auto 8.2 % (2.6-8.5); Platelet Count Result 194 k/mm3 (150-375); Red Blood Count 5.54 M/mm3 (4.6-6.20); Red Cell Distribution Width 12.2 % (11.5-14.5); White Blood Count 9.4 K/mm3 (4.5-10.0)
[2024-03-06 08:43] LABS: Alanine Aminotransferase 10 U/L (6-50); Albumin Level 4.3 g/dL (3.5-5.1); Alkaline Phosphatase 76 U/L (38-126); Anion Gap 9 mmol/L (4-12); Aspartate Amino Transferase 20 U/L (17-59); Bilirubin,Total 0.7 mg/dL (0.2-1.3); Blood Urea Nitrogen 8 mg/dL (9-20); Calcium 8.8 mg/dL (8.4-10.2); Carbon Dioxide 25 mmol/L (22-30); Chloride 102 mmol/L (98-107); Cholesterol 179 mg/dL (0-200); Estimated Glomerular Filt Rate > 60; Glucose 317 mg/dL (65-110); HDL Direct 35 mg/dL; Potassium 3.7 mmol/L (3.4-5.0); Sodium 136 mmol/L (137-145); Triglycerides 342 mg/dL (<150)
[2024-03-06 08:55] LABS: LDL Cholesterol Direct 87 mg/dL
[2024-03-06 09:12] LABS: Total Triiodothyronine (T3) 1.34 NG/ML (0.97-1.69)
[2024-03-06 09:23] LABS: Creatinine Urine 52.3 mg/dL
[2024-03-06 09:27] LABS: MALB Creatinine Ratio 13.2 mg/g (0-30); Microalbumin Urine Random 6.9 mg/L (0-16.7)
[2024-03-06 11:56] LABS: Hemoglobin A1C > 14.0 % (<5.7)
== END 2024-03-06 08:01 | disposition home or self-care (01) ==
PROVIDERS: PCP Family Medicine; Visit Provider Registered Nurse
DX: E11.9 Type 2 diabetes mellitus without complications (principal); I10 Essential (primary) hypertension; E78.5 Hyperlipidemia, unspecified; R53.83 Other fatigue
CPT/HCPCS: 36415; 80053; 80061; 82043; 83036; 84439; 84443; 84480; 85025

== ENCOUNTER 2024-03-23 09:34 | Emergency (ER) | payer OTHER, SELFPAY ==
--- NOTE | ~2024-03-23 | CT_ITS ---
CT of the Abdomen and Pelvis: Indication: Abdominal pain Technique: 2.5 mm axial scans were obtained through the abdomen and pelvis following intravenous adm inistration of 100 cc of Omnipaque 350. Dose reduction technique was used on this scan by utilizing a utomated exposure control and iterative reconstruction technique. The dose-length product (DLP) was 9 02.20 mGy-cm. Findings: Scans through the lung bases are unremarkable. The liver, spleen, pancreas, gallbladder, adrenals and kidneys are within normal limits. No evidence of aortic aneurysm. No lymphadenopathy. No bowel obstruction or bowel wall thickening. There is no evidence to suggest acute appendicitis. Images through the pelvis were performed. Urinary bladder unremarkable. No pelvic mass seen. No ascit es. Impression: No significant abnormalities seen. Reviewed, dictated and finalized at location . Impression: No significant abnormalities seen.
--- NOTE | ~2024-03-23 | XR_ITS ---
EXAMINATION: XR chest 2V 03/23/2024 09:59 INDICATION: Midline chest pain. Hypertension. PROCEDURE: 2 view chest COMPARISON: 12/24/2023 FINDINGS: The lungs are clear. The cardiomediastinal silhouette is within normal limits. There are no pleural effusions. There is no pneumothorax suspected. IMPRESSION: 1: NO ACUTE CARDIOPULMONARY DISEASE. Reviewed, dictated and finalized at location B.
--- NOTE | 2024-03-23 09:37 | ECG_ITS ---
Test Date: 2024-03-23 09:41:16 Measurements Intervals [place] Rate: 93 P: 59 [place]: 142 QRS: 23 QRSD: 94 T: 28 QT: 335 QTc: 417 Interpretive Statements SINUS RHYTHM INCOMPLETE RIGHT BUNDLE BRANCH BLOCK Compared to ECG 01/02/2024 18:27:31 NO SIGNIFICANT CHANGES Electronically Signed On 03-23-2024 13:42:39 CDT by Solis Mariee M.D.
[2024-03-23 09:38] VITALS: BP 156/105; PULSE 96; RESP 20; TEMP 36.5; O2SAT 98
[2024-03-23 09:43] VITALS: O2SAT 97
[2024-03-23 09:54] LABS: Basophils Absolute Auto 0.1 K/mm3 (0.0-0.1); Basophils Percent Auto 0.6 % (0.2-1.2); Eosinophils Absolute Auto 0.4 K/mm3 (0-0.3); Eosinophils Percent Auto 3.6 % (0-4.4); Hematocrit 45.5 % (42.0-52.0); Hemoglobin 15.7 g/dL (14.0-18.0); Immature Granulocyte Absolute 0.03 K/mm3 (0.00-0.031); Immature Granulocyte Percent A 0.3 % (0-0.5); Lymphocytes Percent Auto 23.1 % (18.3-44.2); Mean Corpuscular HGB Conc 34.5 g/dl (32-36); Mean Corpuscular Hemoglobin 29.2 pg (26-34); Mean Corpuscular Volume 84.6 fl (80-100); Mean Platelet Volume 9.8 fl (7.4-10.4); Monocytes Absolute Auto 0.7 K/mm3 (0.1-0.6); Monocytes Percent Auto 6.8 % (2.6-8.5); Neutrophils Absolute Auto 7.1 K/mm3 (1.3-6.7); Neutrophils Percent Auto 65.6 % (45.5-73.1); Platelet Count Result 208 k/mm3 (150-375); Red Blood Count 5.38 M/mm3 (4.6-6.20); Red Cell Distribution Width 12.3 % (11.5-14.5); White Blood Count 10.8 K/mm3 (4.5-10.0)
[2024-03-23 10:03] LABS: Alanine Aminotransferase 10 U/L (6-50); Albumin Level 4.4 g/dL (3.5-5.1); Alkaline Phosphatase 56 U/L (38-126); Anion Gap 6 mmol/L (4-12); Aspartate Amino Transferase 21 U/L (17-59); Bilirubin,Total 0.6 mg/dL (0.2-1.3); Blood Urea Nitrogen 12 mg/dL (9-20); Calcium 9.5 mg/dL (8.4-10.2); Carbon Dioxide 31 mmol/L (22-30); Chloride 100 mmol/L (98-107); Estimated CRCL calculation 163 ml/min; Estimated Glomerular Filt Rate > 60; Glucose 231 mg/dL (65-110); Lipase 114 U/L (23-300); Potassium 4.4 mmol/L (3.4-5.0); Sodium 137 mmol/L (137-145)
[2024-03-23 10:05] LABS: INR 0.9; Prothrombin Time 12.8 Seconds (11.1-14.7)
[2024-03-23 10:06] LABS: Partial Thromboplastin Time 25.4 Seconds (22.3-36.8)
[2024-03-23 10:14] LABS: Troponin I < 0.012 ng/mL (0.000-0.034)
--- NOTE | 2024-03-23 10:32 | ED.CHESTPAIN ---
HPI - Chest Pain General Chief Complaint: Chest Pain Stated Complaint: chest pain Time Seen by Provider: 03/23/24 10:05 Source: patient Mode of arrival: ambulatory Limitations: no limitations History of Present Illness HPI narrative: Patient is a 43-year-old male, with PMH of smoking, HTN, HLD, DM, GERD, who presents to the ED with reports of left-sided chest and abdomen pain. Patient reports he was at work this morning when he began having pain in his left-sided chest around 6:30 a.m.. He states the pain lasted for a few hours before improving on its own. He then went home from work. He began having some pain throughout his left-sided abdomen after that. States he denies any current chest pain, only complains of pain throughout his left-sided abdomen right now. states his symptoms feel somewhat similar to acid reflux. Reported having mild shortness of breath associated with the chest pain this morning. Denies any currently. Denies recent cough or cold symptoms. Does report rhinorrhea. Denies fevers. Denies lower extremity pain or swelling. Denies nausea, vomiting, diarrhea. Related Data Home Medications Medication Instructions Recorded Confirmed insulin glargine 100 unit/mL (3 100 unit subcut DIRECTED 03/20/23 01/11/24 mL) subcutaneous pen (Lantus Solostar U-100 Insulin) lisinopril 20 1 tablet PO DAILY 03/20/23 01/11/24 mg-hydrochlorothiazide 25 mg tablet metoprolol succinate 200 mg 200 mg PO DAILY 03/20/23 01/11/24 tablet,extended release 24 hr aspirin 81 mg tablet,delayed 81 mg PO DAILY 10/24/23 01/11/24 release atorvastatin 40 mg tablet 40 mg PO DAILY 10/24/23 01/11/24 dapagliflozin propanediol 10 mg 10 mg PO DAILY 10/24/23 01/11/24 tablet (Farxiga) gabapentin 300 mg capsule 300 mg PO BID 12/26/23 01/11/24 Allergies Allergy/AdvReac Type Severity Reaction Status Date / Time Penicillins Allergy Severe Hives Verified 01/11/24 12:02 Review of Systems Review of Systems: All systems reviewed & are unremarkable except as noted in HPI. All systems reviewed & are unremarkable except as noted in HPI and below PMFSH Past Medical History Medical History COPD (chronic obstructive pulmonary disease) Diabetes Hyperlipidemia Hypertension PTSD (post-traumatic stress disorder) Treadmill stress test negative for angina pectoris Social History Social History Smoking packs per day: 0.5 Smoking cigarettes per day: 10.0 Smoking status: Current every day smoker Tobacco type: cigarettes Alcohol intake: former Substance use: never Substance use type: does not use Living arrangements: alone Spiritual care concerns: No Exam Narrative: GENERAL: Appears older than stated age, obese with BMI of 31.6, non-toxic, in no acute distress. HEAD: Normocephalic, atraumatic. RESPIRATORY: Airway patent, respirations nonlabored. Clear to auscultation bilaterally, no rales, rhonchi, wheezing. No focal lung sounds. CARDIOVASCULAR: Regular rate and rhythm without murmurs, rubs, or gallops. ABDOMINAL: Soft, mild TTP in LLQ abd, L mid abdomen, no rebound, nondistended. Normoactive BS. MUSCULOSKELETAL: Moves all extremities. No gross deformities. mild TTP over L anterior chest wall, reproducing pain. No peripheral edema. SKIN: Warm, dry, normal color. NEURO: A&O X3. Speech clear. Cranial nerves II-XII grossly intact. No ataxic movements. PSYCHIATRIC: Appropriate mood and affect. Normal interaction. Course Vital Signs Vital signs: Vital Signs Temperature 97.7 F 03/23/24 09:38 Pulse Rate 96 03/23/24 09:38 Respiratory Rate 20 03/23/24 09:38 Blood Pressure 156/105 H 03/23/24 09:38 Pulse Oximetry 98 03/23/24 09:38 Oxygen Delivery Room Air 03/23/24 09:38 Temperature 97.7 F 03/23/24 09:38 Pulse Rate 82 03/23/24 13:24 Respiratory Rate 18
[2024-03-23] MEDS: BELLADONNA ALK/PHENOB ELIX 10 ML, MAG HYDROX/ALUMINUM HYD/SIMETH 30 ML, LIDOCAINE HCL 2... PO (11:14)
[2024-03-23 11:16] LABS: D Dimer 0.48 ug/mL (<0.48)
[2024-03-23 11:17] VITALS: BP 152/93; PULSE 87; RESP 17; O2SAT 99
--- NOTE | 2024-03-23 12:25 | ECG_ITS ---
Test Date: 2024-03-23 12:34:53 Measurements Intervals [place] Rate: 77 P: 59 [place]: 157 QRS: 25 QRSD: 93 T: 32 QT: 357 QTc: 406 Interpretive Statements SINUS RHYTHM INCOMPLETE RIGHT BUNDLE BRANCH BLOCK Compared to ECG 03/23/2024 09:41:16 NO SIGNIFICANT CHANGES Electronically Signed On 03-23-2024 13:46:12 CDT by Solis Mariee M.D.
[2024-03-23 12:59] LABS: Troponin I < 0.012 ng/mL (0.000-0.034)
[2024-03-23 13:24] VITALS: BP 148/99; PULSE 82; RESP 18; O2SAT 98
== END 2024-03-23 13:25 | disposition home or self-care (01) ==
PROVIDERS: Student in an Organized Health Care Education/Training Program; Emergency Provider Physician Assistant; PCP Family Medicine
DX: R07.89 Other chest pain (principal); R10.9 Unspecified abdominal pain; I10 Essential (primary) hypertension; E11.9 Type 2 diabetes mellitus without complications; E78.5 Hyperlipidemia, unspecified; J44.9 Chronic obstructive pulmonary disease, unspecified; K21.9 Gastro-esophageal reflux disease without esophagitis; F17.210 Nicotine dependence, cigarettes, uncomplicated; Z79.4 Long term (current) use of insulin; Z79.899 Other long term (current) drug therapy; Z79.82 Long term (current) use of aspirin; I45.10 Unspecified right bundle-branch block
CPT/HCPCS: 36415; 71046; 74177; 80053; 83690; 84484; 85025; 85380; 85610; 85730; 93005; 99284; A9270; Q9967

== ENCOUNTER 2024-03-30 11:44 | Emergency (ER) | payer OTHER, SELFPAY ==
--- NOTE | ~2024-03-30 | XR_ITS ---
EXAMINATION: XR chest 2V DATE: 03/30/2024 12:25 INDICATION: Productive cough. TECHNIQUE: Frontal and lateral views of the chest were obtained. COMPARISON: Chest 2 views 03/23/2024, CT abdomen and pelvis 03/23/2024 FINDINGS: There is no pneumonia, pleural effusion, or pneumothorax. The heart size is normal. IMPRESSION: 1. No acute cardiopulmonary disease. Reviewed, dictated and finalized at location A.
[2024-03-30 11:53] VITALS: BP 115/76; PULSE 88; RESP 18; TEMP 36.6; O2SAT 99
--- NOTE | 2024-03-30 12:07 | ED_ITS ---
HPI - URI/Sore Throat General Chief Complaint: Upper Respiratory Infection Stated Complaint: Sore Throat/Cough Time Seen by Provider: 03/30/24 12:07 Source: patient, RN notes reviewed and old records reviewed Mode of arrival: ambulatory Limitations: no limitations History of Present Illness HPI Narrative: Patient presents with 3 day history sinus congestion, chest congestion, cough, fatigue, subjective fever. He reports bod aches and headache. He denies any injury or trauma. He reports he has not been taking anything for his symptoms. He denies any shortness of breath. He reports symptoms are worse today than they have been the past couple of days. Related Data Home Medications Medication Instructions Recorded Confirmed insulin glargine 100 unit/mL (3 100 unit subcut DIRECTED 03/20/23 03/30/24 mL) subcutaneous pen (Lantus Solostar U-100 Insulin) lisinopril 20 1 tablet PO DAILY 03/20/23 03/30/24 mg-hydrochlorothiazide 25 mg tablet metoprolol succinate 200 mg 200 mg PO DAILY 03/20/23 03/30/24 tablet,extended release 24 hr aspirin 81 mg tablet,delayed 81 mg PO DAILY 10/24/23 03/30/24 release atorvastatin 40 mg tablet 40 mg PO DAILY 10/24/23 03/30/24 dapagliflozin propanediol 10 mg 10 mg PO DAILY 10/24/23 03/30/24 tablet (Farxiga) gabapentin 300 mg capsule 300 mg PO BID 12/26/23 03/30/24 Allergies Allergy/AdvReac Type Severity Reaction Status Date / Time Penicillins Allergy Severe Hives Verified 03/30/24 11:59 Review of Systems Review of Systems: All systems reviewed & are unremarkable except as noted in HPI and below Constitutional: Constitutional: Reports as per HPI, Reports no additional constitutional complaints, Reports body ache(s), Reports chills, Reports fatigue, Reports fever(s) and Reports lethargy ENT: Reports system reviewed and no additional complaints, except as documented, Reports nasal congestion, Reports nasal discharge, Reports sinus pressure and Reports sore throat Cardiovascular: Cardiovascular: Reports as per HPI and Reports no additional cardiovascular complaints Respiratory: Respiratory: Reports as per HPI, Reports no additional respiratory complaints, Reports chest congestion and Reports cough Gastrointestinal: Gastrointestinal: Reports no additional gastrointestinal complaints PMFSH Past Medical History Medical History COPD (chronic obstructive pulmonary disease) Diabetes Hyperlipidemia Hypertension PTSD (post-traumatic stress disorder) Treadmill stress test negative for angina pectoris Social History Social History Smoking packs per day: 0.5 Smoking cigarettes per day: 10.0 Smoking status: Current every day smoker Tobacco type: cigarettes Alcohol intake: former Substance use: never Substance use type: does not use Living arrangements: alone Spiritual care concerns: No Exam Const: General: cooperative, no acute distress, alert and awake Orientation/consciousness: oriented to person, oriented to place and oriented to time HENMT: Head: normal to inspection Ears: TM's normal bilaterally Mouth: Yes moist mucous membranes Throat: postnasal drainage Resp: Effort & Inspection: normal respiratory effort and able to speak in complete sentences Auscultation: clear to auscultation bilaterally, no crackles, no rales, no rhonchi and no wheezes Cardio: Palpation: normal PMI Rate: regular rate Rhythm: regular rhythm Heart sounds: S1 normal heart sound present and S2 normal heart sound present Neuro: General: oriented to person, oriented to place and oriented to time Cranial nerves: Yes CN's II-XII intact bilaterally Psych: Appearance: grossly normal Thought process: Normal thought process present Insight: Good insight present (Psych) Judgement: Good judgement present (Psych) Course Course Level of Care: Express Care Visit Vital Signs Vital signs: Vital Signs Temperature 98 F 03/30/24 11:53 Pulse Rate 88 03/30/24 11:53 Respiratory Rate 18 03/30/24 11:53 Blood Pressure 115/76 03/30/24 11:53 Pulse Oximetry 99 03/30/24 11:53 Oxygen Delivery Room Air 03/30/24 11:53 Temperature 98 F 03/30/24 11:53 Pulse Rate 88 03/30/24 11:53 Respiratory Rate 18 03/30/24 11:53 Blood Pressure 115/76 03/30/24 11:53 Pulse Oximetry 99 03/30/24 11:53 Oxygen Delivery Room Air 03/30/24 11:53 MDM - URI/Sore Throat MDM Narrative Medical decision making narrative: Negative COVID, negative flu, negative strep. Culture pending. Negative chest x-ray. Symptoms more than likely attributable to viral illness. Follow with primary care provider, emergency department with new or worse symptoms. Patient nontoxic appearing, stable for discharge home. Discharge instructions reviewed with patient, as well as provided in writing per nursing staff. The instructions also include specific and strict return/GO TO THE ER as well as f/u information. All questions have been answered, and the patient deny any further questions with discharge and discharge plan. Some parts of this dictation were generated by voice recognition software and may contain typographical and/or grammatical inaccuracies. Differential Diagnosis Differential diagnosis: Likely upper respiratory infection, otitis media, viral infection, influenza and pharyngitis Medical Records Attestation: I reviewed the patient's medical records. Lab Data Attestation: I reviewed the patient's lab results. Labs: Lab Results 03/30/24 Range/Units 12:23 POC Grp A Strep Screen Negative (Negative) Imaging Data Attestation: I personally reviewed and interpreted this imaging study as follows: My impression: negative Radiologist's impression: [place] [id number] XRay Report Signed Patient: Felix Lan : 1980 MR#: [id number] Age: 43 Acct:[id number] Loc: [facility] ADM Date: 03/30/24Attending Dr: Ordering Physician: Caro Lang FNP Date of Service: 03/30/24 Procedure(s): XR chest 2V Accession Number(s): [id number] cc: Caro Lang FNP; Mario Hartley MD~ EXAMINATION: XR chest 2V DATE: 03/30/2024 12:25 INDICATION: Productive cough. TECHNIQUE: Frontal and lateral views of the chest were obtained. COMPARISON: Chest 2 views 03/23/2024, CT abdomen and pelvis 03/23/2024 FINDINGS: There is no pneumonia, pleural effusion, or pneumothorax. The heart size is normal. IMPRESSION: 1. No acute cardiopulmonary disease. Reviewed, dictated and finalized at location A. Dictated By: Ward Ross MD 03/30/24 1225 Signed By: <Electronically signed by Ward Ross MD in [place]> 03/30/24 1226 Discharge Plan Discharge Clinical Impression: Viral infection Patient Disposition: Home, Self-Care Condition: Stable Instructions: Antibiotic Form, Viral Syndrome (ED) Additional Instructions: Take Tylenol per package instructions as needed for fever or discomfort. Follow-up with primary care provider. Emergency department for new or worse symptoms Patient Language: Grenadian Prescriptions: No Action metoprolol succinate 200 mg tablet extended release 24 hr 200 mg PO DAILY lisinopril-hydrochlorothiazide 20-25 mg tablet 1 tablet PO DAILY insulin glargine [Lantus Solostar U-100 Insulin] 100 unit/mL (3 mL) insulin pen 100 unit SUBCUT DIRECTED ondansetron HCl 4 mg tablet 4 mg PO Q8H PRN (Reason: nausea and vomiting) Qty: 20 1RF dapagliflozin propanediol [Farxiga] 10 mg tablet 10 mg PO DAILY atorvastatin 40 mg tablet 40 mg PO DAILY aspirin 81 mg tablet,delayed release (DR/EC) 81 mg PO DAILY (DME) Dexcom G6 Sensor Device See Rx Instructions .Route Qty: 9 2RF Rx Instructions: As directed pantoprazole 40 mg tablet,delayed release (DR/EC) 40 mg PO QHS Qty: 30 1RF famotidine [Pepcid] 20 mg tablet 20 mg PO BID 42 Days Qty: 84 0RF (DME) insulin syringe-needle,dispos. 0.5 mL 30 gauge x 5/16 syringe See Rx Instructions .Route Qty: 100 0RF Rx Instructions: As directed insulin lispro [Humalog U-100 Insulin] 100 unit/mL solution See Rx Instructions .ROUTE .COMPLEX Qty: 10 2RF Rx Instructions: Per insulin pump: sliding scale cholecalciferol (vitamin D3) 50 mcg (2,000 unit) capsule 50 mcg PO DAILY Qty: 30 2RF albuterol sulfate 90 mcg/actuation HFA aerosol inhaler See Rx Instructions .ROUTE .COMPLEX Qty: 18 1RF Dose Instruction: 1 PUFF INHALED EVERY 4 HOURS NEEDED FOR SHORTNESS OF BREATH OR WHEEZING Rx Instructions: 1 PUFF INHALED EVERY 4 HOURS NEEDED FOR SHORTNESS OF BREATH OR WHEEZING gabapentin 300 mg capsule 300 mg PO BID Rx Instructions: TAKE 1 CAPSULE BY MOUTH TWICE A DAY Follow-up/Referrals: Mario Hartley MD [Primary Care Provider] - 3 Days Stand Alone Forms: Work/School Release IP Time of Disposition: 12:54
[2024-03-30 12:25] LABS: EDSTREPNEGPOS1 Negative (Negative)
== END 2024-03-30 13:00 | disposition home or self-care (01) ==
PROVIDERS: Emergency Provider Nurse Practitioner Family; PCP Family Medicine
DX: B34.9 Viral infection, unspecified (principal); F17.210 Nicotine dependence, cigarettes, uncomplicated; J44.9 Chronic obstructive pulmonary disease, unspecified; E11.9 Type 2 diabetes mellitus without complications; Z79.4 Long term (current) use of insulin; I10 Essential (primary) hypertension; E78.5 Hyperlipidemia, unspecified; Z79.82 Long term (current) use of aspirin
CPT/HCPCS: 71046; 87081; 87880; 99213; G0463

== ENCOUNTER 2024-04-01 13:26 | Emergency (ER) | payer OTHER, SELFPAY ==
[2024-04-01 13:28] VITALS: BP 147/86; PULSE 105; RESP 16; TEMP 36.6; O2SAT 98
[2024-04-01 13:42] VITALS: O2SAT 98
[2024-04-01 14:06] LABS: Strep Group A RT-PCR NOT DETECTED (Negative)
[2024-04-01 14:18] LABS: Influenza A QL RT-PCR Negative (Negative); Influenza B QL RT-PCR Negative (Negative); RSV RNA, RT-PCR Negative (Negative); SARS-CoV-2 RNA PCR Negative (Negative)
--- NOTE | 2024-04-01 15:14 | ED_ITS ---
HPI - General Adult General Chief complaint: Upper Respiratory Infection Stated complaint: URI s/s Time Seen by Provider: 04/01/24 13:37 History of Present Illness HPI narrative: Patient is a 43-year-old male who presents ER with cold symptoms. He was seen a couple days ago in urgent care and had a negative viral swab and strep swab. He continues to have sinus congestion with sore throat and productive cough. No dyspnea. No chest pain. He has tried Mucinex without improvement. Related Data Home Medications Medication Instructions Recorded Confirmed insulin glargine 100 unit/mL (3 100 unit subcut DIRECTED 03/20/23 03/30/24 mL) subcutaneous pen (Lantus Solostar U-100 Insulin) lisinopril 20 1 tablet PO DAILY 03/20/23 03/30/24 mg-hydrochlorothiazide 25 mg tablet metoprolol succinate 200 mg 200 mg PO DAILY 03/20/23 03/30/24 tablet,extended release 24 hr aspirin 81 mg tablet,delayed 81 mg PO DAILY 10/24/23 03/30/24 release atorvastatin 40 mg tablet 40 mg PO DAILY 10/24/23 03/30/24 dapagliflozin propanediol 10 mg 10 mg PO DAILY 10/24/23 03/30/24 tablet (Farxiga) gabapentin 300 mg capsule 300 mg PO BID 12/26/23 03/30/24 Allergies Allergy/AdvReac Type Severity Reaction Status Date / Time Penicillins Allergy Severe Hives Verified 03/30/24 11:59 Review of Systems Constitutional: Constitutional: Reports no additional constitutional complaints ENT: Reports nasal congestion and Reports sore throat Cardiovascular: Cardiovascular: Reports no additional cardiovascular complaints Respiratory: Respiratory: Reports cough, Denies dyspnea and Denies wheezing Gastrointestinal: Gastrointestinal: Reports no additional gastrointestinal complaints [facility] Past Medical History Medical History COPD (chronic obstructive pulmonary disease) Diabetes Hyperlipidemia Hypertension PTSD (post-traumatic stress disorder) Treadmill stress test negative for angina pectoris Social History Social History Smoking packs per day: 0.5 Smoking cigarettes per day: 10.0 Smoking status: Current every day smoker Tobacco type: cigarettes Alcohol intake: former Substance use: never Substance use type: does not use Living arrangements: alone Spiritual care concerns: No Exam Narrative: GENERAL: Well-appearing, well-nourished, and in no acute distress. HEAD: Normocephalic, atraumatic. ENT: Mucous membranes moist. CHEST: Clear to auscultation. No respiratory distress. HEART: Regular rate and rhythm. Normal peripheral pulses. EXTREMITIES: Normal range of motion. No edema. NEURO: Alert and oriented x3. PSYCH: Normal mood and affect. Course Course Emergency Course: Patient resting comfortably. Discussed trying Flonase and humidified air to help with symptoms. Discharge home. Vital Signs Vital signs: Vital Signs Temperature 97.9 F 04/01/24 13:28 Pulse Rate 105 H 04/01/24 13:28 Respiratory Rate 16 04/01/24 13:28 Blood Pressure 147/86 H 04/01/24 13:28 Pulse Oximetry 98 04/01/24 13:28 Oxygen Delivery Room Air 04/01/24 13:28 Temperature 97.9 F 04/01/24 13:28 Pulse Rate 105 H 04/01/24 13:28 Respiratory Rate 16 04/01/24 13:28 Blood Pressure 147/86 H 04/01/24 13:28 Pulse Oximetry 98 04/01/24 13:42 Oxygen Delivery Room Air 04/01/24 13:42 Medical Decision Making Vital Signs Vital Signs: Vital Signs Temperature 97.9 F 04/01/24 13:28 Pulse Rate 105 H 04/01/24 13:28 Respiratory Rate 16 04/01/24 13:28 Blood Pressure 147/86 H 04/01/24 13:28 Pulse Oximetry 98 04/01/24 13:28 Oxygen Delivery Room Air 04/01/24 13:28 Temperature 97.9 F 04/01/24 13:28 Pulse Rate 105 H 04/01/24 13:28 Respiratory Rate 16 04/01/24 13:28 Blood Pressure 147/86 H 04/01/24 13:28 Pulse Oximetry 98 04/01/24 13:42 Oxygen Delivery Room Air 04/01/24 13:42 Lab Data Labs: Lab Results 04/01/24 Range/Units 13:33 Influenza A (RT-PCR) Negative (Negative) Influenza B (RT-PCR) Negative (Negative) RSV (RT-PCR) Negative (Negative) SARS-CoV-2 RNA (RT-PCR) Negative (Negative) Group A Strep (PCR) Not detected (Negative) Discharge Plan Discharge Clinical Impression: Viral infection Patient Disposition: Home, Self-Care Condition: Stable Instructions: Viral Syndrome (ED) Additional Instructions: As discussed you have a viral illness. Unfortunately there are no specific medications we can give you to make the illness end faster. Antibiotics do not work for viral illnesses. However, you can take Acetaminophen or Ibuprofen to help with fevers and pain. Stay well hydrated and rested. Return to the emergency department if your fevers and chills continue to worse after 5 days, if you develop worsening cough with thick sputum, or are unable to stay hydrated. Contact your primary care provider in the next few days for a re-evaluation and to make sure your symptoms are improving. Prescriptions: New fluticasone propionate [Allergy Relief (fluticasone)] 50 mcg/actuation spray,suspension 1 spray intranasal DAILY Qty: 16 0RF Rx Instructions: administer into each nostril No Action metoprolol succinate 200 mg tablet extended release 24 hr 200 mg PO DAILY lisinopril-hydrochlorothiazide 20-25 mg tablet 1 tablet PO DAILY insulin glargine [Lantus Solostar U-100 Insulin] 100 unit/mL (3 mL) insulin pen 100 unit SUBCUT DIRECTED ondansetron HCl 4 mg tablet 4 mg PO Q8H PRN (Reason: nausea and vomiting) Qty: 20 1RF dapagliflozin propanediol [Farxiga] 10 mg tablet 10 mg PO DAILY atorvastatin 40 mg tablet 40 mg PO DAILY aspirin 81 mg tablet,delayed release (DR/EC) 81 mg PO DAILY (DME) Dexcom G6 Sensor Device See Rx Instructions .Route Qty: 9 2RF Rx Instructions: As directed pantoprazole 40 mg tablet,delayed release (DR/EC) 40 mg PO QHS Qty: 30 1RF famotidine [Pepcid] 20 mg tablet 20 mg PO BID 42 Days Qty: 84 0RF (DME) insulin syringe-needle,dispos. 0.5 mL 30 gauge x 5/16 syringe See Rx Instructions .Route Qty: 100 0RF Rx Instructions: As directed insulin lispro [Humalog U-100 Insulin] 100 unit/mL solution See Rx Instructions .ROUTE .COMPLEX Qty: 10 2RF Rx Instructions: Per insulin pump: sliding scale cholecalciferol (vitamin D3) 50 mcg (2,000 unit) capsule 50 mcg PO DAILY Qty: 30 2RF albuterol sulfate 90 mcg/actuation HFA aerosol inhaler See Rx Instructions .ROUTE .COMPLEX Qty: 18 1RF Dose Instruction: 1 PUFF INHALED EVERY 4 HOURS NEEDED FOR SHORTNESS OF BREATH OR WHEEZING Rx Instructions: 1 PUFF INHALED EVERY 4 HOURS NEEDED FOR SHORTNESS OF BREATH OR WHEEZING gabapentin 300 mg capsule 300 mg PO BID Rx Instructions: TAKE 1 CAPSULE BY MOUTH TWICE A DAY Follow-up/Referrals: Mario Hartley MD [Primary Care Provider] - 1 Week
== END 2024-04-01 15:41 | disposition home or self-care (01) ==
PROVIDERS: Preventive Medicine Aerospace Medicine; Emergency Provider Emergency Medicine; PCP Family Medicine
DX: B34.9 Viral infection, unspecified (principal); Z79.4 Long term (current) use of insulin; Z79.82 Long term (current) use of aspirin; E11.9 Type 2 diabetes mellitus without complications; E78.5 Hyperlipidemia, unspecified; I10 Essential (primary) hypertension; J44.9 Chronic obstructive pulmonary disease, unspecified; F17.210 Nicotine dependence, cigarettes, uncomplicated; Z20.822 Contact with and (suspected) exposure to COVID-19
CPT/HCPCS: 87637; 87651; 99283

== ENCOUNTER 2024-04-18 09:15 | Outpatient (CLI) | payer OTHER, SELFPAY ==
--- NOTE | 2024-04-24 18:01 | WPDPFTINT ---
PFT Procedure Performed PFT Procedure Performed Spirometry with Pre/Post Bronchodilator Plethysmography (Lung Vol) Diffusing Cap (DLCO) Flow Vol Loop PFT Interpretation DOS: 04/18/2024 REQUESTING: Shahram Moctezuma APRN REASON FOR TESTING: Chronic cough PULMONARY FUNCTION TESTS Results are reliable and reproducible. Repeatability of spirometry FEV1 maneuver pre and post bronchodilator is Grade A. Spirometry: The pre-bronchodilator FEV1 is 3.85 L, 91%. The pre-bronchodilator FVC is 5.55 L, 104%. The FEV1/FVC ratio is 69%. After bronchodilator, the FEV1 is 3.10 L, 73%, -20%. The post-bronchodilator FVC is 5.27 L, 99%,-5%. The FEV1/FVC ratio is 59%, decreased. Lung volumes: The total lung capacity is 7.20 L, 101%. The residual volume is 1.65 L, 84%. The RV/TLC is 23%. Airway resistance is normal. Diffusion: DLCO is 25.7, 79%. The DLCO/VA is 4.5, 96%. Flow volume loop: The flow volume loop is normal. IMPRESSION: This study shows a moderate obstructive ventilatory defect without response to bronchodilator, normal lung volumes, and normal diffusion. Lack of response to bronchodilator should not preclude use if clinically indicated. There are no prior studies for comparison. Joan Ariza MD
== END 2024-04-18 09:16 | disposition home or self-care (01) ==
LOC: ANHPFT 09:16
PROVIDERS: PCP Family Medicine; Visit Provider Nurse Practitioner Family
DX: R05.3 Chronic cough (principal)
CPT/HCPCS: 94060; 94726; 94729

== ENCOUNTER 2024-06-08 11:00 | Outpatient (CLI) | payer OTHER, SELFPAY ==
[2024-06-08 12:27] LABS: Hemoglobin A1C 12.5 % (<5.7)
== END 2024-06-08 11:01 | disposition home or self-care (01) ==
LOC: ANHLAB 11:02
PROVIDERS: PCP Family Medicine; Visit Provider Family Medicine
DX: E11.9 Type 2 diabetes mellitus without complications (principal)
CPT/HCPCS: 36415; 83036

== ENCOUNTER 2024-08-04 13:16 | Emergency (ER) | payer OTHER, SELFPAY ==
[2024-08-04 13:19] VITALS: BP 122/97; PULSE 72; RESP 16; TEMP 37; O2SAT 98
== END 2024-08-04 14:29 | disposition left against medical advice (07) ==
PROVIDERS: PCP Family Medicine
DX: R11.2 Nausea with vomiting, unspecified (principal)
CPT/HCPCS: 99199

== ENCOUNTER 2024-08-05 11:11 | Emergency (ER) | payer OTHER, SELFPAY ==
[2024-08-05 11:24] VITALS: BP 144/84; PULSE 87; RESP 14; TEMP 37.1; O2SAT 97
--- NOTE | 2024-08-05 11:25 | ED.URI ---
HPI - URI/Sore Throat General Chief Complaint: Upper Respiratory Infection Stated Complaint: Sore Throat/Cough Time Seen by Provider: 08/05/24 11:25 Source: patient, RN notes reviewed and old records reviewed Mode of arrival: ambulatory Limitations: no limitations History of Present Illness HPI Narrative: Patient presents with complaints of sinus pain and pressure. He reports that symptoms have been present 1-2 weeks. Says that he was put on steroids about 1 week ago and had some improvement, but is now feeling worse again. He has not been taking any [id number] medications for his symptoms. He is not in any obvious distress. Related Data Home Medications ?Medication ?Instructions ?Recorded ?Confirmed ?Last Taken ?Type insulin glargine 100 unit/mL (3 100 unit subcut DIRECTED 03/20/23 05/08/24 Unknown History mL) subcutaneous pen (Lantus Solostar U-100 Insulin) lisinopril 20 1 tablet PO DAILY 03/20/23 05/08/24 Unknown History mg-hydrochlorothiazide 25 mg tablet metoprolol succinate 200 mg 200 mg PO DAILY 03/20/23 05/08/24 Unknown History tablet,extended release 24 hr aspirin 81 mg tablet,delayed 81 mg PO DAILY 10/24/23 05/08/24 Unknown History release atorvastatin 40 mg tablet 40 mg PO DAILY 10/24/23 05/08/24 Unknown History dapagliflozin propanediol 10 mg 10 mg PO DAILY 10/24/23 05/08/24 Unknown History tablet (Farxiga) paroxetine HCl 20 mg tablet 20 mg PO DAILY 04/05/24 05/08/24 Unknown History Allergies Allergy/AdvReac Type Severity Reaction Status Date / Time Penicillins Allergy Severe Hives Verified 08/05/24 11:16 Review of Systems Review of Systems: All systems reviewed & are unremarkable except as noted in HPI and below Constitutional: Constitutional: Reports no additional constitutional complaints and Reports lethargy ENT: Reports system reviewed and no additional complaints, except as documented, Reports nasal congestion, Reports nasal discharge, Reports sinus pain, Reports sinus pressure and Reports sore throat Cardiovascular: Cardiovascular: Reports no additional cardiovascular complaints Respiratory: Respiratory: Reports no additional respiratory complaints Gastrointestinal: Gastrointestinal: Reports no additional gastrointestinal complaints PMFSH Past Medical History Medical History COPD (chronic obstructive pulmonary disease) Treadmill stress test negative for angina pectoris Hyperlipidemia PTSD (post-traumatic stress disorder) Hypertension Diabetes Social History Social History Smoking packs per day: 0.5 Smoking cigarettes per day: 10.0 Smoking status: Current every day smoker Tobacco type: cigarettes Alcohol intake: former Substance use: never Substance use type: does not use Living arrangements: alone Spiritual care concerns: No Comments At the time of my signature, I reviewed and agree with the nursing past medical, surgical, social, and family history. There is no relevant family history pertinent to the patient complaint. Exam Const: General: cooperative, no acute distress, alert and awake Orientation/consciousness: oriented to person, oriented to place and oriented to time HENMT: Head: normal to inspection Ears: TM's normal bilaterally Face and sinus: sinus tenderness Resp: Effort & Inspection: normal respiratory effort and able to speak in complete sentences Auscultation: clear to auscultation bilaterally, no crackles, no rales, no rhonchi and no wheezes Cardio: Palpation: normal PMI Rate: regular rate Rhythm: regular rhythm Heart sounds: S1 normal heart sound present and S2 normal heart sound present Neuro: General: oriented to person, oriented to place and oriented to time Cranial nerves: Yes CN's II-XII intact bilaterally Psych: Appearance: grossly normal Thought process: Normal thought process present Insight: Good insight present (Psych) Judgement: Good judgement present (Psych) Course Course Level of Care: Express Care Visit Vital Signs Vital signs: Vital Signs Temperature 98.7 F 08/05/24 11:24 Pulse Rate 87 08/05/24 11:24 Respiratory Rate 14 08/05/24 11:24 Blood Pressure 144/84 H 08/05/24 11:24 Pulse Oximetry 97 08/05/24 11:24 Oxygen Delivery Room Air 08/05/24 11:24 Temperature 98.7 F 08/05/24 11:24 Pulse Rate 87 08/05/24 11:24 Respiratory Rate 14 08/05/24 11:24 Blood Pressure 144/84 H 08/05/24 11:24 Pulse Oximetry 97 08/05/24 11:24 Oxygen Delivery Room Air 08/05/24 11:24 Reviewed MDM - URI/Sore Throat MDM Narrative Medical decision making narrative: History and exam consistent with sinusitis. Patient is nontoxic appearing, stable for discharge home on p.o. antibiotic therapy. Next para Discharge instructions reviewed with patient, as well as provided in writing per nursing staff. The instructions also include specific and strict return/GO TO THE ER as well as f/u information. All questions have been answered, and the patient deny any further questions with discharge and discharge plan. Some parts of this dictation were generated by voice recognition software and may contain typographical and/or grammatical inaccuracies. Differential Diagnosis Differential diagnosis: Likely upper respiratory infection, otitis media and sinusitis Medical Records Attestation: I reviewed the patient's medical records. Discharge Plan Discharge Clinical Impression: Sinusitis Qualifiers: Sinusitis location: maxillary Chronicity: acute Recurrence: not specified as recurrent Qualified Code(s): J01.00 - Acute maxillary sinusitis, unspecified Patient Disposition: Home, Self-Care Condition: Stable Instructions: Antibiotic Form, Sinusitis (ED) Additional Instructions: Take medication as prescribed. Follow with primary care provider. Emergency department for new or worse symptoms Patient Language: Slovak Prescriptions: New doxycycline hyclate 100 mg capsule 100 mg PO BID Qty: 14 0RF No Action metoprolol succinate 200 mg tablet extended release 24 hr 200 mg PO DAILY lisinopril-hydrochlorothiazide 20-25 mg tablet 1 tablet PO DAILY insulin glargine [Lantus Solostar U-100 Insulin] 100 unit/mL (3 mL) insulin pen 100 unit SUBCUT DIRECTED ondansetron HCl 4 mg tablet 4 mg PO Q8H PRN (Reason: nausea and vomiting) Qty: 20 1RF paroxetine HCl 20 mg tablet 20 mg PO DAILY dapagliflozin propanediol [Farxiga] 10 mg tablet 10 mg PO DAILY atorvastatin 40 mg tablet 40 mg PO DAILY aspirin 81 mg tablet,delayed release (DR/EC) 81 mg PO DAILY (DME) Dexcom G6 Sensor Device See Rx Instructions .Route Qty: 9 2RF Rx Instructions: As directed pantoprazole 40 mg tablet,delayed release (DR/EC) 40 mg PO QHS Qty: 30 1RF famotidine [Pepcid] 20 mg tablet 20 mg PO BID 42 Days Qty: 84 0RF (DME) insulin syringe-needle,dispos. 0.5 mL 30 gauge x 5/16 syringe See Rx Instructions .Route Qty: 100 0RF Rx Instructions: As directed fluticasone propionate [Allergy Relief (fluticasone)] 50 mcg/actuation spray,suspension 1 spray intranasal DAILY Qty: 16 0RF Rx Instructions: administer into each nostril insulin lispro [Humalog U-100 Insulin] 100 unit/mL solution See Rx Instructions .ROUTE .COMPLEX Qty: 10 2RF Rx Instructions: Per insulin pump: sliding scale cholecalciferol (vitamin D3) 50 mcg (2,000 unit) capsule 50 mcg PO DAILY Qty: 30 2RF albuterol sulfate 90 mcg/actuation HFA aerosol inhaler See Rx Instructions .ROUTE .COMPLEX Qty: 18 1RF Dose Instruction: 1 PUFF INHALED EVERY 4 HOURS NEEDED FOR SHORTNESS OF BREATH OR WHEEZING Rx Instructions: 1 PUFF INHALED EVERY 4 HOURS NEEDED FOR SHORTNESS OF BREATH OR WHEEZING Anoro Ellipta 62.5-25 mcg/actuation blister with device 1 inh inhalation Q24H Qty: 60 5RF Follow-up/Referrals: Mario Hartley MD [Primary Care Provider] - 2 Weeks Stand Alone Forms: Work/School Release IP
[2024-08-05 11:45] LABS: EDCOVIDSCREEN Negative (Negative); EDINFLUASCREEN Negative (Negative); EDINFLUBSCREEN Negative (Negative); EDSTREPNEGPOS1 Negative (Negative)
== END 2024-08-05 11:45 | disposition home or self-care (01) ==
PROVIDERS: Emergency Provider Nurse Practitioner Family; PCP Family Medicine
DX: J01.00 Acute maxillary sinusitis, unspecified (principal); Z20.822 Contact with and (suspected) exposure to COVID-19; F17.210 Nicotine dependence, cigarettes, uncomplicated; J44.9 Chronic obstructive pulmonary disease, unspecified; E78.5 Hyperlipidemia, unspecified; I10 Essential (primary) hypertension; E11.9 Type 2 diabetes mellitus without complications; Z79.4 Long term (current) use of insulin; Z79.82 Long term (current) use of aspirin
CPT/HCPCS: 87081; 87426; 87804; 87880; 99213; G0463

== ENCOUNTER 2024-09-17 11:54 | Outpatient (CLI) | payer OTHER, SELFPAY ==
[2024-09-17 12:31] LABS: Basophils Absolute Auto 0.1 K/mm3 (0.0-0.1); Basophils Percent Auto 0.6 % (0.2-1.2); Eosinophils Absolute Auto 0.5 K/mm3 (0-0.3); Eosinophils Percent Auto 3.7 % (0-4.4); Hematocrit 48.3 % (42.0-52.0); Hemoglobin 15.9 g/dL (14.0-18.0); Immature Granulocyte Absolute 0.07 K/mm3 (0.00-0.031); Immature Granulocyte Percent A 0.6 % (0-0.5); Lymphocytes Absolute Auto 3.54 K/mm3 (0.9-3.2); Lymphocytes Percent Auto 27.8 % (18.3-44.2); Mean Corpuscular HGB Conc 32.9 g/dl (32-36); Mean Corpuscular Hemoglobin 27.7 pg (26-34); Mean Corpuscular Volume 84.3 fl (80-100); Mean Platelet Volume 10.1 fl (7.4-10.4); Monocytes Absolute Auto 0.8 K/mm3 (0.1-0.6); Monocytes Percent Auto 6.4 % (2.6-8.5); Neutrophils Absolute Auto 7.8 K/mm3 (1.3-6.7); Neutrophils Percent Auto 60.9 % (45.5-73.1); Platelet Count Result 238 k/mm3 (150-375); Red Blood Count 5.73 M/mm3 (4.6-6.20); Red Cell Distribution Width 12.8 % (11.5-14.5); White Blood Count 12.7 K/mm3 (4.5-10.0)
[2024-09-17 12:43] LABS: Alanine Aminotransferase 11 U/L (6-50); Albumin Level 4.3 g/dL (3.5-5.1); Alkaline Phosphatase 55 U/L (38-126); Anion Gap 8 mmol/L (4-12); Aspartate Amino Transferase 19 U/L (17-59); Bilirubin,Total 0.5 mg/dL (0.2-1.3); Blood Urea Nitrogen 16 mg/dL (9-20); Carbon Dioxide 29 mmol/L (22-30); Chloride 102 mmol/L (98-107); Cholesterol 180 mg/dL (0-200); Estimated Glomerular Filt Rate > 60; Glucose 134 mg/dL (65-110); HDL Direct 43 mg/dL; Potassium 3.9 mmol/L (3.4-5.0); Sodium 139 mmol/L (137-145); Triglycerides 136 mg/dL (<150)
[2024-09-17 12:55] LABS: Creatinine Urine 79.4 mg/dL; LDL Cholesterol Direct 106 mg/dL
[2024-09-17 12:56] LABS: Hemoglobin A1C 12.5 % (<5.7); MALB Creatinine Ratio 8.1 mg/g (0-30); Microalbumin Urine Random 6.4 mg/L (0-16.7)
[2024-09-17 13:12] LABS: Prostate Specific Antigen 0.7 ng/mL (< OR = 4.0)
--- OUTSIDE RECORDS SUMMARY | 2024-09-17 13:22 | XMS_ITS | Encounter Summary ---
Author Organization [facility] Address [address] [place] [address] Care Team Providers Care Air Quality Chemist Name Role Phone King Bingham MD Primary Care Provider [phone] Mario Hartley MD Primary Care Provider [phone] Encounter Details Date Type Department Care Team (Late st Contact Info) Description 05/21/[address] Conversion [address] [place], [place] [id number] , Generic Conversion, Social History Tobacco Use Types Packs/Day Years Used Date Smoking Tobacco: Never Assessed Sex and Gender Information Value Date Recorded Sex Assigned at Male 07/30/2024 11:26 PM DRUPAL ARCHITECT Legal Sex Male 8:15 AM CDT Gender Identity Not on file Sexual Orientation Not on file documented as of this encounter Plan of Treatment Not on file documented as of this encounter Visit Diagnoses Not on filedocumented in this encounter Care Teams Air Quality Chemist Relationship Specialty Start Date End Date King Bingham MD [address] [place] [phone] PCP - General FAMILY PRACTICE 01/24/18 07/29/24 Mario Hartley MD [address] [place] [address] PCP - General FAMILY PRACTICE 07/30/24 documented as of this encounter
--- OUTSIDE RECORDS SUMMARY | 2024-09-17 13:22 | XMS_ITS | Encounter Summary ---
Author Organization [facility] Address [address] [place] [address] Care Team Providers Care Tax Manager Cpa Name Role Phone King Bingham MD Primary Care Provider Mario Hartley MD Primary Care Provider [phone] Encounter Details Date Type Department Care Team (Late st Contact Info) Description 11/11/[address] Conversion [address] [place], [place] [id number] , Generic Conversion, Social History Tobacco Use Types Packs/Day Years Used Date Smoking Tobacco: Never Assessed Sex and Gender Information Value Date Recorded Sex Assigned at Male 07/30/2024 11:26 PM TAX MANAGER CPA Legal Sex Male 8:15 AM CDT Gender Identity Not on file Sexual Orientation Not on file documented as of this encounter Plan of Treatment Not on file documented as of this encounter Visit Diagnoses Not on filedocumented in this encounter Care Teams Tax Manager Cpa Relationship Specialty Start Date End Date King Bingham MD [address] [place] [phone] PCP - General FAMILY PRACTICE 01/24/18 07/29/24 Mario Hartley MD [address] [place] [address] PCP - General FAMILY PRACTICE 07/30/24 documented as of this encounter
--- OUTSIDE RECORDS SUMMARY | 2024-09-17 13:22 | XMS_ITS | Clinical Summary ---
Author Organization [facility] Address [address] [place] [address] Care Team Providers Care Managing Broker Name Role Phone Mario Hartley MD Primary Care Provider [phone] Allergies Active Allergy Reactions Criticality Noted Date Comments Metformin Diarrhea Low 02/08/2023 Does not tolerate Penicillins Hives Medium 04/11/2013 Shellfish Allergy Rash Low 04/19/2013 Vancomycin Hives Medium 08/03/2023 Medications No known medications Encounters Date Type Department Care Team Description 07/30/2024 11:11 PM PERSONAL DRIVER - 07/30/2024 11:53 PM PERSONAL DRIVER Emergency [facility] [place] [address] Latha Hess PA Flu Like Symptoms Discharge Disposition: Home or Self Care (Routine Discharge) 07/30/2024 Travel from Last 3 Months Social History Tobacco Use Types Packs/Day Years Used Date Smoking Tobacco: Never Assessed Sex and Gender Information Value Date Recorded Sex Assigned at Male 07/30/2024 11:26 PM PERSONAL DRIVER Legal Sex Male 8:15 AM CDT Gender Identity Not on file Sexual Orientation Not on file Last Filed Vital Signs Vital Sign Reading Time Taken Comments Blood Pressure 132/83 07/30/2024 11:01 PM PERSONAL DRIVER Pulse 88 07/30/2024 11:01 PM PERSONAL DRIVER Temperature 36.9 C (98.4 F) 07/30/2024 11:01 PM PERSONAL DRIVER Respiratory Rate 18 07/30/2024 11:0 1 PM PERSONAL DRIVER Oxygen Saturation 97% 07/30/2024 11: 01 PM PERSONAL DRIVER Inhaled Oxygen Concentration - - Weight 103.5 kg (228 lb 2.8 oz) 025 11:01 PM PERSONAL DRIVER Height 180.3 cm (5' 11 ) 07/30/2024 11: 01 PM PERSONAL DRIVER Body Mass Index 31.82 07/30/2024 11:01 PM PERSONAL DRIVER Plan of Treatment Health Maintenance Due Date Last Done Comments Colorectal Cancer Screening Colonoscopy (10 Years) 1979 Annual Physical 1982 Hepatitis C 1997 Hepatitis B Vaccines (1 of 3 - 19+ 3-dose series) 1998 DTaP, Tdap and Td Vaccines (2 - Td or Tdap) 05/14/2029 05/14/2019 Pneumococcal Vaccine: Pediatrics (0 to 5 Years) and At-Risk Patients (6 to 49 Years) Aged Out 04/11/2023, 05/14/2019 No longer eligibl e based on patient's age to complete this topic COVID-19 Vaccine Completed 03/23/2024, 11/2022, 04/13/2021, Additional history exists HPV Vaccines Aged Out No longer eligi ble based on patient's age to complete this topic Meningococcal B Vaccine Aged Out No l onger eligible based on patient's age to complete this topic Meningococcal Vaccine Aged Out No uma martin eligible based on patient's age to complete this topic RSV Immunizations Under 20 Months Aged Out No longer eligible based on patient's age to complete this topic Insurance [employer] [address] [id number] Care Teams Managing Broker Relationship Specialty Start Date End Date Mario Hartley MD [address] [place] [address] PCP - General FAMILY PRACTICE 07/30/24
[2024-09-17 13:55] LABS: Hepatitis C Virus Antibody Negative (Negative)
== END 2024-09-17 11:55 | disposition home or self-care (01) ==
LOC: ANHLAB 11:57
PROVIDERS: PCP Family Medicine; Visit Provider Family Medicine
DX: E78.5 Hyperlipidemia, unspecified (principal); I10 Essential (primary) hypertension; E11.40 Type 2 diabetes mellitus with diabetic neuropathy, unspecified
CPT/HCPCS: 36415; 80053; 80061; 82043; 83036; 84153; 85025; 86803

== ENCOUNTER 2024-09-29 14:45 | Emergency (ER) | payer OTHER, SELFPAY ==
--- NOTE | ~2024-09-29 | CT_ITS ---
CT abdomen pelvis w con Ordering provider: Dalia Aquino APRN History: 44 years Male with . abdominal pain, N V . Comparison: March 23, 2024 Technique: CT abdomen and pelvis with IV and without oral contrast. Automated exposure control and it erative reconstruction technique were employed. The dose-length product was 897.75 mGy-cm. 100 mL Omn ipaque 350 was given IV. Findings: VISUALIZED LOWER CHEST: Dependent atelectatic changes. UPPER ABDOMINAL ORGANS: Liver: Normal. Gallbladder: Normal. Spleen: Normal. Stomach/duodenum: Normal. Pancreas: Normal. Adrenals: Normal. Kidneys: Normal. PELVIC ORGANS: The bladder is underfilled. BOWEL AND MESENTERY: Colon: No evidence of diverticulitis.. Fecal material is loaded in the colon. Normal appendix. Small Bowel: Normal. No obstruction. Peritoneum/mesentery: No free air or free fluid. No mesenteric lymphadenopathy. RETROPERITONEUM: Normal aorta. No retroperitoneal lymphadenopathy. MUSCULOSKELETAL: Superficial soft tissues: Small fat-containing umbilical hernia. Otherwise, The superficial soft tiss ues are normal. Bones: Age appropriate degenerative changes of the spine. Bilateral sacroiliitis. Anterior fusion is noted.. IMPRESSION: 1. No evidence of appendicitis, diverticulitis or intestinal obstruction. 2. Constipation Reviewed, dictated and finalized at location A.
--- OUTSIDE RECORDS SUMMARY | 2024-09-29 14:47 | XMS_ITS | Encounter Summary ---
Author Organization [facility] Address [address] [place] [address] Care Team Providers Care Lpn Or Medical Assistant Name Role Phone King Bingham MD Primary Care Provider Mario Hartley MD Primary Care Provider [phone] Encounter Details Date Type Department Care Team (Late st Contact Info) Description 05/21/[address] Conversion [address] [place], [place] [id number] , Generic Conversion, Social History Tobacco Use Types Packs/Day Years Used Date Smoking Tobacco: Never Assessed Sex and Gender Information Value Date Recorded Sex Assigned at Male 07/30/2024 11:26 PM EMBROIDERY SPECIALIST Legal Sex Male 8:15 AM CDT Gender Identity Not on file Sexual Orientation Not on file documented as of this encounter Plan of Treatment Not on file documented as of this encounter Visit Diagnoses Not on filedocumented in this encounter Care Teams Lpn Or Medical Assistant Relationship Specialty Start Date End Date King Bingham MD [address] [place] [phone] PCP - General FAMILY PRACTICE 01/24/18 07/29/24 Mario Hartley MD [address] [place] [address] PCP - General FAMILY PRACTICE 07/30/24 documented as of this encounter
--- OUTSIDE RECORDS SUMMARY | 2024-09-29 14:47 | XMS_ITS | Clinical Summary ---
Author Organization [facility] Address [address] [place] [address] Care Team Providers Care Carpenter/Labor Name Role Phone Mario Hartley MD Primary Care Provider [phone] Allergies Active Allergy Reactions Criticality Noted Date Comments Metformin Diarrhea Low 02/08/2023 Does not tolerate Penicillins Hives Medium 04/11/2013 Shellfish Allergy Rash Low 04/19/2013 Vancomycin Hives Medium 08/03/2023 Medications No known medications Encounters Date Type Department Care Team Description 07/30/2024 11:11 PM CODING AUDITOR - 07/30/2024 11:53 PM CODING AUDITOR Emergency [facility] [place] [address] Latha Hess PA Flu Like Symptoms Discharge Disposition: Home or Self Care (Routine Discharge) 07/30/2024 Travel from Last 3 Months Social History Tobacco Use Types Packs/Day Years Used Date Smoking Tobacco: Never Assessed Sex and Gender Information Value Date Recorded Sex Assigned at Male 07/30/2024 11:26 PM CODING AUDITOR Legal Sex Male 8:15 AM CDT Gender Identity Not on file Sexual Orientation Not on file Last Filed Vital Signs Vital Sign Reading Time Taken Comments Blood Pressure 132/83 07/30/2024 11:01 PM CODING AUDITOR Pulse 88 07/30/2024 11:01 PM CODING AUDITOR Temperature 36.9 C (98.4 F) 07/30/2024 11:01 PM CODING AUDITOR Respiratory Rate 18 07/30/2024 11:0 1 PM CODING AUDITOR Oxygen Saturation 97% 07/30/2024 11: 01 PM CODING AUDITOR Inhaled Oxygen Concentration - - Weight 103.5 kg (228 lb 2.8 oz) 025 11:01 PM CODING AUDITOR Height 180.3 cm (5' 11 ) 07/30/2024 11: 01 PM CODING AUDITOR Body Mass Index 31.82 07/30/2024 11:01 PM CODING AUDITOR Plan of Treatment Health Maintenance Due Date [...] patient's age to complete this topic Insurance [employer] [address] [id number] Care Teams Carpenter/Labor Relationship Specialty Start Date End Date Mario Hartley MD [address] [place] [address] PCP - General FAMILY PRACTICE 07/30/24
--- OUTSIDE RECORDS SUMMARY | 2024-09-29 14:47 | XMS_ITS | Encounter Summary ---
Author Organization [facility] Address [address] [place] [address] Care Team Providers Care Repairer General Name Role Phone King Bingham MD Primary Care Provider Mario Hartley MD Primary Care Provider [phone] Encounter Details Date Type Department Care Team (Late st Contact Info) Description 11/11/[address] 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
[2024-09-29 14:55] VITALS: BP 166/99; PULSE 110; RESP 16; TEMP 36.5; O2SAT 97
--- NOTE | 2024-09-29 15:01 | ECG_ITS ---
Test Date: 2024-09-29 16:36:52 Measurements Intervals [place] Rate: 99 P: 68 PA: 155 QRS: 42 QRSD: 95 T: 37 QT: 332 QTc: 428 Interpretive Statements SINUS RHYTHM POSSIBLE LEFT ATRIAL ENLARGEMENT INCOMPLETE RIGHT BUNDLE BRANCH BLOCK BORDERLINE ECG Compared to ECG 03/23/2024 12:34:53 NO SIGNIFICANT CHANGE Electronically Signed On 09-29-2024 20:36:18 CDT by Kasi Dumas D.O.
--- NOTE | 2024-09-29 15:02 | ED_ITS ---
HPI - Abdominal Pain General Chief Complaint: Abdominal Pain Stated Complaint: abd pain, n/v Time Seen by Provider: 09/29/24 15:00 Focused HPI: Patient is a 39-year-old male who presents to the ER with complaints nausea, vomiting and abdominal pain that started around 4:00 a.m. this morning. He reports he is diabetic and his blood sugar has been low with the vomiting. Patient was transported to the ER by EMS and his blood sugar was 65 at that time. EMS gave patient oral glucagon. Patient denies any recent fevers, chest pain, shortness of breath, or urinary symptoms. His medical records indicate patient has a history of GERD, high blood pressure, hyperlipidemia, and asthma. He denies alcohol or drug use but does endorse cigarette smoking. GENERAL: Well-appearing, well-nourished, and in no acute distress. HEAD: Normocephalic, atraumatic. CHEST: Clear to auscultation. ?No respiratory distress. HEART: Tachycardia, regular rhythm.? NEURO: ?Alert and oriented x3. ABD: Generalized tenderness with palpation, + BS Patient screened in triage and initial orders placed.? ?Additional care and disposition to be based upon?diagnostic testing and treatment. Related Data Home Medications ?Medication ?Instructions ?Recorded ?Confirmed ?Last Taken ?Type aspirin 81 mg tablet,delayed 81 mg PO DAILY 10/24/23 08/29/24 Unknown History release paroxetine HCl 20 mg tablet 20 mg PO DAILY 04/05/24 08/29/24 Unknown History Allergies Allergy/AdvReac Type Severity Reaction Status Date / Time Penicillins Allergy Severe Hives Verified 09/29/24 14:45 Review of Systems 2 Review of Systems: All systems reviewed & are unremarkable except as noted in HPI and below PMFSH Past Medical History Medical History COPD (chronic obstructive pulmonary disease) Treadmill stress test negative for angina pectoris Hyperlipidemia PTSD (post-traumatic stress disorder) Hypertension Diabetes Social History Social History Smoking packs per day: 0.5 Smoking cigarettes per day: 10.0 Smoking status: Current every day smoker Tobacco type: cigarettes Alcohol intake: former Substance use: never Substance use type: does not use Do You Feel Safe in your Home?: Yes Lack of Transportation: No Lack of Food: Never True Current Housing: I Have Housing Concerned About Future Housing: No Difficulty Paying Gas/Electric Bills: No Difficulty Paying for Meds: No Currently Unemployed: No Education: High School Diploma/GED Difficulty w/ Childcare or Family Care: No Living arrangements: alone Spiritual care concerns: No Exam 2 Narrative: GENERAL: Well-appearing, well-nourished, and in no acute distress. HEAD: Normocephalic, atraumatic. CHEST: Clear to auscultation. ?No respiratory distress. HEART: Tachycardia, regular rhythm.? NEURO: ?Alert and oriented x3. ABD: Generalized tenderness with palpation, + BS Course Vital Signs Vital signs: Vital Signs Temperature 36.5 C 09/29/24 14:55 Pulse Rate 110 H 09/29/24 14:55 Respiratory Rate 16 09/29/24 14:55 Blood Pressure 166/99 H 09/29/24 14:55 Pulse Oximetry 97 09/29/24 14:55 Temperature 36.5 C 09/29/24 14:55 Pulse Rate 110 H 09/29/24 14:55 Respiratory Rate 16 09/29/24 14:55 Blood Pressure 166/99 H 09/29/24 14:55 Pulse Oximetry 97 09/29/24 14:55 MDM - Abdominal Pain MDM Narrative Medical decision making narrative: Patient is a 39-year-old male who presents to the ER with complaints nausea, vomiting and abdominal pain that started around 4:00 a.m. this morning. He reports he is diabetic and his blood sugar has been low with the vomiting. Patient was transported to the ER by EMS and his blood sugar was 65 at that time. EMS gave patient oral glucagon. Patient denies any recent fevers, chest pain, shortness of breath, or urinary symptoms. His medical records indicate patient has a history of GERD, high blood pressure, hyperlipidemia, and asthma. He denies alcohol or drug use but does endorse cigarette smoking. Labs Ordered: CBC, CMP, troponin, lipase, PTT, INR, UDS, UA Imaging Ordered: CT abdomen/pelvis Medications Ordered: 1L normal saline IV bolus, Zofran 4 mg IV Results: Patient's abdominal pelvis CT scan indicates 1. No evidence of appendicitis, diverticulitis or intestinal obstruction. 2. Constipation Diagnosis: Constipation, drug-induced nausea and vomiting, gastroenteritis, mild dehydration Patient Education/Shared MDM: Results of lab work and imaging shared with patient. He endorses improvement following medication administration. Will give patient Toradol and Bentyl prior to discharge for additional pain relief. Patient strongly advised to maintain hydration status upon discharge and follow- up with his PCP as soon as possible. He will be discharged home with a prescription for Zofran, Bentyl, MiraLax Senokot. Strict return precautions provided. Patient verbalized understanding and is in agreement with plan. Vital signs stable at time of discharge. All questions answered. Differential Diagnosis Differential diagnosis: Likely abdominal pain, acute appendicitis, calculus of kidney, constipation, diverticulitis, gastroenteritis and small bowel obstruction Lab Data Attestation: I reviewed the patient's lab results. 09/29/24 16:20 09/29/24 16:20 Labs: Lab Results 09/29/24 Range/Units 16:20 WBC 15.0 H (4.5-10.0) K/mm3 RBC 6.07 (4.6-6.20) M/mm3 Hgb 17.1 (14.0-18.0) g/dL Hct 51.2 (42.0-52.0) % MCV 84.3 (80-100) fl MCH 28.2 (26-34) pg MCHC 33.4 (32-36) g/dl RDW 12.6 (11.5-14.5) % Plt Count 242 (150-375) k/mm3 MPV 9.7 (7.4-10.4) fl Immature Gran % (Auto) 0.3 (0-0.5) % Neut % (Auto) 76.6 H (45.5-73.1) % Lymph % (Auto) 15.7 L (18.3-44.2) % [place] % (Auto) 6.5 (2.6-8.5) % Eos % (Auto) 0.6 (0-4.4) % Baso % (Auto) 0.3 (0.2-1.2) % Lymph # (Auto) 2.35 (0.9-3.2) K/mm3 [place] # (Auto) 1.0 H (0.1-0.6) K/mm3 Eos # (Auto) 0.1 (0-0.3) K/mm3 Baso # (Auto) 0.0 (0.0-0.1) K/mm3 Abs Immat Gran (auto) 0.05 H (0.00-0.031) K/mm3 Absolute Neuts (auto) 11.5 H (1.3-6.7) K/mm3 Absolute Nucleated RBC 0.000 (0.0-0.012) K/mm3 Nucleated RBC % 0.0 (0.0-0.2) % PT 12.8 (11.1-14.7) Seconds INR 0.9 APTT 26.9 (22.3-36.8) Seconds Sodium 141 (137-145) mmol/L Potassium 3.6 (3.4-5.0) mmol/L Chloride 98 (98-107) mmol/L Carbon Dioxide 33 H (22-30) mmol/L Anion Gap 10 (4-12) mmol/L BUN 12 (9-20) mg/dL Creatinine 0.68 L (0.7-1.3) mg/dL Estim Creat Clear Calc 144 ml/min Estimated GFR > 60 (59 - ) Glucose 86 (65-110) mg/dL Calcium 9.8 (8.4-10.2) mg/dL Total Bilirubin 0.8 (0.2-1.3) mg/dL AST 22 (17-59) U/L ALT 12 (6-50) U/L Alkaline Phosphatase 64 (38-126) U/L Troponin I < 0.012 (0.000-0.034) ng/mL Total Protein 8.0 (6.3-8.2) g/dL Albumin 4.7 (3.5-5.1) g/dL Lipase 66 (23-300) U/L Urine Color Dark yellow (Yellow) Urine Appearance Clear (Clear) Urine pH 7.5 (5.0-9.0) Ur Specific [place] 1.026 (1.001-1.035) Urine Protein 1+ H (Negative) mg/dL Urine Glucose (UA) Trace H (Negative) mg/dL Urine Ketones 1+ H (Negative) mg/dL Ur Blood (Man) Negative (Negative) Urine Nitrate Negative (Negative) Urine Bilirubin 1+ H (Negative) Urine Urobilinogen 1.0 (<2.0) mg/dL Leukocyte Esterase Rfl Trace H (Negative) KAILEY/UL Urine RBC 0-2 (0-2) /hpf Urine WBC 0-5 (0-3) /hpf Ur Squamous Epith Cells Few (Few) /hpf Urine Bacteria None seen /hpf Urine Casts 0-2 Urine Opiates Screen Negative (Negative) Urine Methadone Screen Negative (Negative) Ur Barbiturates Screen Negative (Negative) Ur Phencyclidine Scrn Negative (Negative) Ur Amphetamine Screen Negative (Negative) U Benzodiazepines Scrn Negative (Negative) Urine Cocaine Screen Negative (Negative) U Cannabinoids Screen Positive A (Negative) Imaging Data Attestation: I personally reviewed and interpreted this imaging study as follows: Radiologist's impression: ITS Impressions Abdomen/Pelvis CT 09/29/24 17:42 IMPRESSION: 1. No evidence of appendicitis, diverticulitis or intestinal obstruction. 2. Constipation Discharge Plan Discharge Clinical Impression: Gastroenteritis, Constipation, Dehydration, mild, Drug-induced nausea and vomiting Patient Disposition: Home Condition: Stable Instructions: Antibiotic Form, Constipation (ED), Gastroenteritis (ED), Abdominal Pain (ED) Additional Instructions: Please return to the ER with any worsening symptoms. Follow-up with primary care provider as soon as possible. Take all medications as prescribed, including regularly scheduled medications. Patient Language: Latvian Prescriptions: New ondansetron 4 mg tablet,disintegrating 4 mg PO Q8H Qty: 12 0RF dicyclomine 10 mg capsule 10 mg PO TID Qty: 12 0RF polyethylene glycol 3350 [Miralax] 17 gram/dose powder 17 g PO BID Qty: 238 0RF senna 8.6 mg capsule 8.6 mg PO BID PRN (Reason: constipation) Qty: 14 0RF No Action ondansetron HCl 4 mg tablet 4 mg PO Q8H PRN (Reason: nausea and vomiting) Qty: 20 1RF paroxetine HCl 20 mg tablet 20 mg PO DAILY (DME) Omnipod 5 G6-G7 Pods (Gen 5) Cartridge See Rx Instructions .ROUTE .MEDSUPPLY Qty: 45 2RF Rx Instructions: Change every 48hours atorvastatin 40 mg tablet 40 mg PO DAILY Qty: 90 1RF (DME) Dexcom G6 Sensor Device See Rx Instructions .Route Qty: 9 2RF Rx Instructions: As directed (DME) Dexcom G6 Transmitter Device See Rx Instructions .ROUTE .MEDSUPPLY Qty: 1 3RF Rx Instructions: Use to monitor glucose; change every 90 days cholecalciferol (vitamin D3) 50 mcg (2,000 unit) capsule 50 mcg PO DAILY Qty: 30 2RF dapagliflozin propanediol [Farxiga] 10 mg tablet 10 mg PO DAILY Qty: 90 1RF Trelegy Ellipta 100-62.5-25 mcg blister with device 1 inh inhalation DAILY Qty: 60 0RF insulin glargine [Lantus Solostar U-100 Insulin] 100 unit/mL (3 mL) insulin pen 45 unit SUBCUT DAILY PRN (Reason: insulin pump malfunction ) Qty: 15 1RF insulin lispro [Humalog U-100 Insulin] 100 unit/mL solution 120 unit continuous subcutaneous infusion DAILY Qty: 110 1RF lisinopril-hydrochlorothiazide 20-25 mg tablet 1 tablet PO DAILY Qty: 90 1RF metoprolol succinate 200 mg tablet extended release 24 hr 200 mg PO DAILY Qty: 90 1RF aspirin 81 mg tablet,delayed release (DR/EC) 81 mg PO DAILY pantoprazole 40 mg tablet,delayed release (DR/EC) 40 mg PO QHS Qty: 30 1RF famotidine [Pepcid] 20 mg tablet 20 mg PO BID 42 Days Qty: 84 0RF fluticasone propionate [Allergy Relief (fluticasone)] 50 mcg/actuation spray,suspension 1 spray intranasal DAILY Qty: 16 0RF Rx Instructions: administer into each nostril albuterol sulfate 90 mcg/actuation HFA aerosol inhaler See Rx Instructions .ROUTE .COMPLEX Qty: 18 1RF Dose Instruction: 1 PUFF INHALED EVERY 4 HOURS NEEDED FOR SHORTNESS OF BREATH OR WHEEZING Rx Instructions: 1 PUFF INHALED EVERY 4 HOURS NEEDED FOR SHORTNESS OF BREATH OR WHEEZING liraglutide [Victoza 3-Valerio] 0.6 mg/0.1 mL (18 mg/3 mL) pen injector 1.8 mg subcut .COMPLEX Qty: 18 1RF Rx Instructions: Start 0.6 mg once daily for 1 week, then increase 1.2mg daily for at least 1 week, then increase to 1.8mg daily Follow-up/Referrals: Mario Hartley MD [Primary Care Provider] - Stand Alone Forms: Work/School Release IP Time of Disposition: 18:38
[2024-09-29] MEDS: ONDANSETRON INJ 4 MG/2 ML VIAL IV PUSH (16:17)
[2024-09-29] MEDS: SODIUM CHLORIDE 0.9% IV 1,000 ML 999 ML IV CONT (16:17)
--- OUTSIDE RECORDS SUMMARY | 2024-09-29 16:17 | XMS_ITS | Encounter Summary ---
Author Organization [facility] Address [address] [place] [address] Care Team Providers Care Helper Shear Operator Name Role Phone King Bingham MD Primary Care Provider Mario Hartley MD Primary Care Provider [phone] Encounter Details Date Type Department Care Team (Late st Contact Info) Description 05/21/[address] 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
--- OUTSIDE RECORDS SUMMARY | 2024-09-29 16:17 | XMS_ITS | Clinical Summary ---
Author Organization [facility] Address [address] [place] [address] Care Team Providers Care Undraped Artist Model Name Role Phone Mario Hartley MD Primary Care Provider [phone] Allergies Active Allergy Reactions Criticality Noted Date Comments Metformin Diarrhea Low 02/08/2023 Does not tolerate Penicillins Hives Medium 04/11/2013 Shellfish Allergy Rash Low 04/19/2013 Vancomycin Hives Medium 08/03/2023 Medications No known medications Encounters Date Type Department Care Team Description 07/30/2024 11:11 PM ADVERTISING DISPLAY ROTATOR - 07/30/2024 11:53 PM ADVERTISING DISPLAY ROTATOR Emergency [facility] [place] [address] Latha Hess PA Flu Like Symptoms Discharge Disposition: Home or Self Care (Routine Discharge) 07/30/2024 Travel from Last 3 Months Social History Tobacco Use Types Packs/Day Years Used Date Smoking Tobacco: Never Assessed Sex and Gender Information Value Date Recorded Sex Assigned at Male 07/30/2024 11:26 PM ADVERTISING DISPLAY ROTATOR Legal Sex Male 8:15 AM CDT Gender Identity Not on file Sexual Orientation Not on file Last Filed Vital Signs Vital Sign Reading Time Taken Comments Blood Pressure 132/83 07/30/2024 11:01 PM ADVERTISING DISPLAY ROTATOR Pulse 88 07/30/2024 11:01 PM ADVERTISING DISPLAY ROTATOR Temperature 36.9 C (98.4 F) 07/30/2024 11:01 PM ADVERTISING DISPLAY ROTATOR Respiratory Rate 18 07/30/2024 11:0 1 PM ADVERTISING DISPLAY ROTATOR Oxygen Saturation 97% 07/30/2024 11: 01 PM ADVERTISING DISPLAY ROTATOR Inhaled Oxygen Concentration - - Weight 103.5 kg (228 lb 2.8 oz) 025 11:01 PM ADVERTISING DISPLAY ROTATOR Height 180.3 cm (5' 11 ) 07/30/2024 11: 01 PM ADVERTISING DISPLAY ROTATOR Body Mass Index 31.82 07/30/2024 11:01 PM ADVERTISING DISPLAY ROTATOR Plan of Treatment Health Maintenance Due Date [...] patient's age to complete this topic Insurance [employer] [address] [id number] Care Teams Undraped Artist Model Relationship Specialty Start Date End Date Mario Hartley MD [address] [place] [address] PCP - General FAMILY PRACTICE 07/30/24
--- OUTSIDE RECORDS SUMMARY | 2024-09-29 16:17 | XMS_ITS | Encounter Summary ---
Author Organization [facility] Address [address] [place] [address] Care Team Providers Care Molten Iron Pourer Name Role Phone King Bingham MD Primary Care Provider [phone] Mario Hartley MD Primary Care Provider [phone] Encounter Details Date Type Department Care Team (Late st Contact Info) Description 11/11/[address] 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
[2024-09-29 16:28] LABS: Basophils Percent Auto 0.3 % (0.2-1.2); Eosinophils Absolute Auto 0.1 K/mm3 (0-0.3); Eosinophils Percent Auto 0.6 % (0-4.4); Hematocrit 51.2 % (42.0-52.0); Hemoglobin 17.1 g/dL (14.0-18.0); Immature Granulocyte Absolute 0.05 K/mm3 (0.00-0.031); Immature Granulocyte Percent A 0.3 % (0-0.5); Lymphocytes Absolute Auto 2.35 K/mm3 (0.9-3.2); Lymphocytes Percent Auto 15.7 % (18.3-44.2); Mean Corpuscular HGB Conc 33.4 g/dl (32-36); Mean Corpuscular Hemoglobin 28.2 pg (26-34); Mean Corpuscular Volume 84.3 fl (80-100); Mean Platelet Volume 9.7 fl (7.4-10.4); Monocytes Percent Auto 6.5 % (2.6-8.5); Neutrophils Absolute Auto 11.5 K/mm3 (1.3-6.7); Neutrophils Percent Auto 76.6 % (45.5-73.1); Platelet Count Result 242 k/mm3 (150-375); Red Blood Count 6.07 M/mm3 (4.6-6.20); Red Cell Distribution Width 12.6 % (11.5-14.5)
[2024-09-29 16:35] LABS: Add Urine Microscopic? YES; Appearance Urine Clear (Clear); Bacteria Urine None Seen /hpf; Bilirubin Urine 1+ (Negative); Blood Urine Negative (Negative); Color Urine Dark Yellow (Yellow); Glucose Urine UA Trace mg/dL (Negative); Ketones Urine 1+ mg/dL (Negative); Leukocyte Esterase Ur Trace LEU/UL (Negative); Nitrate Urine Negative (Negative); Non Pathogenic Casts 0-2; Protein Urine 1+ mg/dL (Negative); RBC Urine 0-2 /hpf (0-2); Specific Grav Ur 1.026 (1.001-1.035); Squamous Epithelial Cell Urine Few /hpf (Few); WBC Urine 0-5 /hpf (0-3); pH Urine 7.5 (5.0-9.0)
[2024-09-29 16:40] LABS: Alanine Aminotransferase 12 U/L (6-50); Albumin Level 4.7 g/dL (3.5-5.1); Alkaline Phosphatase 64 U/L (38-126); Anion Gap 10 mmol/L (4-12); Aspartate Amino Transferase 22 U/L (17-59); Bilirubin,Total 0.8 mg/dL (0.2-1.3); Blood Urea Nitrogen 12 mg/dL (9-20); Calcium 9.8 mg/dL (8.4-10.2); Carbon Dioxide 33 mmol/L (22-30); Chloride 98 mmol/L (98-107); Estimated CRCL calculation 144 ml/min; Estimated Glomerular Filt Rate > 60; Glucose 86 mg/dL (65-110); Lipase 66 U/L (23-300); Potassium 3.6 mmol/L (3.4-5.0); Sodium 141 mmol/L (137-145)
[2024-09-29 16:50] LABS: Amphetamine Screen Urine Negative (Negative); Barbiturate Screen Urine Negative (Negative); Benzodiazepines Screen Urine Negative (Negative); Cannabinoid Screen Urine Positive (Negative); Cocaine Screen Urine Negative (Negative); Methadone Screen Urine Negative (Negative); Opiate Screen Urine Negative (Negative); Phencyclidine Screen Urine Negative (Negative)
[2024-09-29 16:57] LABS: Troponin I < 0.012 ng/mL (0.000-0.034)
[2024-09-29 17:00] VITALS: BP 154/75; PULSE 100; RESP 18; O2SAT 98
[2024-09-29 17:03] LABS: INR 0.9; Partial Thromboplastin Time 26.9 Seconds (22.3-36.8); Prothrombin Time 12.8 Seconds (11.1-14.7)
[2024-09-29] MEDS: KETOROLAC 15 MG/ML VIAL (*BKC) IV PUSH (19:08)
[2024-09-29] MEDS: DICYCLOMINE HCL 10 MG CAPSULE 20 MG PO (19:08)
[2024-09-29 19:21] VITALS: BP 161/98; PULSE 105; RESP 18; O2SAT 97
== END 2024-09-29 19:26 | disposition home or self-care (01) ==
PROVIDERS: Emergency Provider Registered Nurse; PCP Family Medicine
DX: K52.9 Noninfective gastroenteritis and colitis, unspecified (principal); E86.0 Dehydration; K59.00 Constipation, unspecified; R11.2 Nausea with vomiting, unspecified; T50.905A Adverse effect of unspecified drugs, medicaments and biological substances, initial encounter; I10 Essential (primary) hypertension; J44.9 Chronic obstructive pulmonary disease, unspecified; E78.5 Hyperlipidemia, unspecified; E11.9 Type 2 diabetes mellitus without complications; K21.9 Gastro-esophageal reflux disease without esophagitis; F43.10 Post-traumatic stress disorder, unspecified; F17.210 Nicotine dependence, cigarettes, uncomplicated; Z79.4 Long term (current) use of insulin; Z79.82 Long term (current) use of aspirin; Z79.899 Other long term (current) drug therapy; Z79.85 Long-term (current) use of injectable non-insulin antidiabetic drugs; I45.10 Unspecified right bundle-branch block; R94.31 Abnormal electrocardiogram [ECG] [EKG]
CPT/HCPCS: 36415; 74177; 80053; 80307; 81001; 83690; 84484; 85025; 85610; 85730; 93005; 96361; 96374; 96375; 99284; A9270; J1885; J2405; J7030; Q9967

== ENCOUNTER 2024-11-02 11:30 | Emergency (ER) | payer MEDICAID, SELFPAY ==
[2024-11-02 11:38] VITALS: BP 146/87; PULSE 104; RESP 16; TEMP 36.5; O2SAT 98
--- NOTE | 2024-11-02 11:42 | ED.EXTPRO ---
HPI - Extremity Problem General Chief complaint: Extremity Problem,Nontraumatic Stated complaint: Swollen Left Hand Source: patient Mode of arrival: ambulatory Limitations: no limitations History of Present Illness HPI Narrative: Patient is a 44-year-old male who presents to the clinic with complaints of bilateral hand swelling and pain x 2 days. He has not been taking anything [id number]. Denies any type of allergic reaction/exposure or injury. Denies any tingling or radiation of pain. Related Data Home Medications ?Medication ?Instructions ?Recorded ?Confirmed ?Last Taken ?Type aspirin 81 mg tablet,delayed 81 mg PO DAILY 10/24/23 08/29/24 Unknown History release paroxetine HCl 20 mg tablet 20 mg PO DAILY 04/05/24 08/29/24 Unknown History Allergies Allergy/AdvReac Type Severity Reaction Status Date / Time Penicillins Allergy Severe Hives Verified 11/02/24 11:39 Review of Systems Review of Systems: CONSTITUTIONAL: Denies body aches, fever, chills EYES: Denies visual changes ENT: Denies rhinorrhea, congestion CARDIOVASCULAR: Denies chest pain, palpitations, or edema. RESPIRATORY: Denies cough or dyspnea. SKIN: Denies rash, itching, or wounds. MUSCULOSKELETAL: Denies back pain or myalgia. Reports bilateral hand edema and pain. NEUROLOGIC: Denies headache, numbness, tingling, or weakness. All systems reviewed & are unremarkable except as noted in HPI and below PMFSH Past Medical History Medical History COPD (chronic obstructive pulmonary disease) Treadmill stress test negative for angina pectoris Hyperlipidemia PTSD (post-traumatic stress disorder) Hypertension Diabetes Social History Social History Smoking packs per day: 0.5 Smoking cigarettes per day: 10.0 Smoking status: Current every day smoker Tobacco type: cigarettes Alcohol intake: former Substance use: never Substance use type: does not use Do You Feel Safe in your Home?: Yes Lack of Transportation: No Lack of Food: Never True Current Housing: I Have Housing Concerned About Future Housing: No Difficulty Paying Gas/Electric Bills: No Difficulty Paying for Meds: No Currently Unemployed: No Education: High School Diploma/GED Difficulty w/ Childcare or Family Care: No Living arrangements: alone Spiritual care concerns: No Comments At time of signature, I have reviewed and agree with nursing past medical, surgical, social and family history unless otherwise noted. Please see nursing chart for further information. There is no relevant family history pertinent to the presenting complaint. Exam Narrative: MUSCULOSKELETAL EXAM GENERAL: Well-appearing, well-nourished, and in no acute distress. HEAD: Normocephalic, atraumatic. NECK: Supple. CHEST: Speaks in full sentences. No respiratory distress. HEART: Regular rate and rhythm. Normal and equal peripheral pulses. EXTREMITIES: Bilateral hands have normal strength and sensation, normal range of motion, but endorses pain with movement. Edema noted to bilateral hands. No ecchymosis, No point tenderness. No open wounds, skin tenting, or obvious deformity; alignment normal, pulse palpable and equal bilaterally, skin warm, dry, pink. Capillary refill less than 3 seconds. Distal sensation intact. SKIN: Warm, dry, no rash. NEURO: Alert and oriented x3. PSYCH: Normal mood and affect Course Course Level of Care: Express Care Visit Vital Signs Vital signs: Vital Signs Temperature 97.7 F 11/02/24 11:38 Pulse Rate 104 H 11/02/24 11:38 Respiratory Rate 16 11/02/24 11:38 Blood Pressure 146/87 H 11/02/24 11:38 Pulse Oximetry 98 11/02/24 11:38 Temperature 97.7 F 11/02/24 11:38 Pulse Rate 104 H 11/02/24 11:38 Respiratory Rate 16 11/02/24 11:38 Blood Pressure 146/87 H 11/02/24 11:38 Pulse Oximetry 98 11/02/24 11:38 Reviewed. MDM - Extremity (Nontraumatic) MDM Narrative Medical decision making narrative: Discussed physical exam findings. Steroids given for inflammation. Advised supportive measures and signs/symptoms to go to the ER. Pt is appropriate for outpatient treatment and follow up. Critical Care Time Critical Care Time Critical Care Time: No Discharge Plan Discharge Clinical Impression: Bilateral hand pain Patient Disposition: Home Condition: Stable Instructions: Arthralgia (ED) Additional Instructions: Takes steroid as prescribed. Rest. Avoid pushing, pulling, lifting or anything that worsens the symptoms You can alternate Tylenol and ibuprofen. Alternate ice/heat to the site. Lidocaine or salon pas pain patch or use pain cream like icy/hot or biofreeze. Follow up with your primary care provider as needed in 1 week Go to the ER for worsening symptoms or concerns Patient Language: Icelandic Prescriptions: New methylprednisolone [Medrol (Valerio)] 4 mg tablets,dose pack See Rx Instructions PO .COMPLEX Qty: 21 0RF Rx Instructions: Take medication as directed on the package. No Action ondansetron HCl 4 mg tablet 4 mg PO Q8H PRN (Reason: nausea and vomiting) Qty: 20 1RF paroxetine HCl 20 mg tablet 20 mg PO DAILY (DME) Omnipod 5 G6-G7 Pods (Gen 5) Cartridge See Rx Instructions .ROUTE .MEDSUPPLY Qty: 45 2RF Rx Instructions: Change every 48hours atorvastatin 40 mg tablet 40 mg PO DAILY Qty: 90 1RF (DME) Dexcom G6 Sensor Device See Rx Instructions .Route Qty: 9 2RF Rx Instructions: As directed (DME) Dexcom G6 Transmitter Device See Rx Instructions .ROUTE .MEDSUPPLY Qty: 1 3RF Rx Instructions: Use to monitor glucose; change every 90 days cholecalciferol (vitamin D3) 50 mcg (2,000 unit) capsule 50 mcg PO DAILY Qty: 30 2RF dapagliflozin propanediol [Farxiga] 10 mg tablet 10 mg PO DAILY Qty: 90 1RF Trelegy Ellipta 100-62.5-25 mcg blister with device 1 inh inhalation DAILY Qty: 60 0RF insulin glargine [Lantus Solostar U-100 Insulin] 100 unit/mL (3 mL) insulin pen 45 unit SUBCUT DAILY PRN (Reason: insulin pump malfunction ) Qty: 15 1RF insulin lispro [Humalog U-100 Insulin] 100 unit/mL solution 120 unit continuous subcutaneous infusion DAILY Qty: 110 1RF lisinopril-hydrochlorothiazide 20-25 mg tablet 1 tablet PO DAILY Qty: 90 1RF metoprolol succinate 200 mg tablet extended release 24 hr 200 mg PO DAILY Qty: 90 1RF aspirin 81 mg tablet,delayed release (DR/EC) 81 mg PO DAILY pantoprazole 40 mg tablet,delayed release (DR/EC) 40 mg PO QHS Qty: 30 1RF famotidine [Pepcid] 20 mg tablet 20 mg PO BID 42 Days Qty: 84 0RF ondansetron 4 mg tablet,disintegrating 4 mg PO Q8H Qty: 12 0RF dicyclomine 10 mg capsule 10 mg PO TID Qty: 12 0RF polyethylene glycol 3350 [Miralax] 17 gram/dose powder 17 g PO BID Qty: 238 0RF senna 8.6 mg capsule 8.6 mg PO BID PRN (Reason: constipation) Qty: 14 0RF fluticasone propionate [Allergy Relief (fluticasone)] 50 mcg/actuation spray,suspension 1 spray intranasal DAILY Qty: 16 0RF Rx Instructions: administer into each nostril albuterol sulfate 90 mcg/actuation HFA aerosol inhaler See Rx Instructions .ROUTE .COMPLEX Qty: 18 1RF Dose Instruction: 1 PUFF INHALED EVERY 4 HOURS NEEDED FOR SHORTNESS OF BREATH OR WHEEZING Rx Instructions: 1 PUFF INHALED EVERY 4 HOURS NEEDED FOR SHORTNESS OF BREATH OR WHEEZING liraglutide [Victoza 3-Valerio] 0.6 mg/0.1 mL (18 mg/3 mL) pen injector 1.8 mg subcut .COMPLEX Qty: 18 1RF Rx Instructions: Start 0.6 mg once daily for 1 week, then increase 1.2mg daily for at least 1 week, then increase to 1.8mg daily Follow-up/Referrals: Mario Hartley MD [Primary Care Provider] - Time of Disposition: 11:45
== END 2024-11-02 11:56 | disposition home or self-care (01) ==
PROVIDERS: PCP Family Medicine
DX: M79.642 Pain in left hand (principal); M79.641 Pain in right hand; F17.210 Nicotine dependence, cigarettes, uncomplicated; J44.9 Chronic obstructive pulmonary disease, unspecified; E78.5 Hyperlipidemia, unspecified; I10 Essential (primary) hypertension; E11.9 Type 2 diabetes mellitus without complications; Z79.4 Long term (current) use of insulin; Z79.85 Long-term (current) use of injectable non-insulin antidiabetic drugs; Z79.82 Long term (current) use of aspirin
CPT/HCPCS: 99213; G0463

== ENCOUNTER 2024-11-17 10:34 | Emergency (ER) | payer MEDICAID, SELFPAY ==
[2024-11-17 10:42] VITALS: BP 150/99; PULSE 113; RESP 16; TEMP 37.1; O2SAT 99
--- NOTE | 2024-11-17 10:54 | ED.SKABFB ---
HPI - Skin/Abscess/Foreign Bdy General Chief complaint: Skin/Abscess/Foreign Body Stated complaint: rash on body Time Seen by Provider: 11/17/24 10:54 Source: patient and RN notes reviewed Mode of arrival: ambulatory Limitations: no limitations History of Present Illness HPI narrative: 44-year-old male presents with concern for rash. Reports general hives after eating strawberries. Reports his lips became tingly and had a swollen lower lip on Tuesday after eating strawberries. Reports since then he has full body hives. He has taken Benadryl without relief. He has not had any trouble breathing, tongue swelling. He does not have any history of allergy to strawberries before. MD complaint: rash Related Data Home Medications ?Medication ?Instructions ?Recorded ?Confirmed ?Last Taken ?Type aspirin 81 mg tablet,delayed 81 mg PO DAILY 10/24/23 08/29/24 Unknown History release paroxetine HCl 20 mg tablet 20 mg PO DAILY 04/05/24 08/29/24 Unknown History Allergies Allergy/AdvReac Type Severity Reaction Status Date / Time Penicillins Allergy Severe Hives Verified 11/17/24 10:48 Review of Systems Review of Systems: CONSTITUTIONAL: Denies malaise, chills, sweats, or fever. EYES: Denies redness, or discharge. ENT: Denies rhinorrhea, congestion, swollen lips, swollen tongue CARDIOVASCULAR: Denies chest pain, palpitations, or edema. RESPIRATORY: Denies cough or dyspnea. GASTROINTESTINAL: Denies abdominal pain, nausea, vomiting SKIN: Reports itchy generalized rash MUSCULOSKELETAL: Denies joint pain or myalgia. NEUROLOGIC: Denies headache. All systems reviewed & are unremarkable except as noted in HPI and below [facility] Past Medical History Medical History COPD (chronic obstructive pulmonary disease) Treadmill stress test negative for angina pectoris Hyperlipidemia PTSD (post-traumatic stress disorder) Hypertension Diabetes Social History Social History Smoking packs per day: 0.5 Smoking cigarettes per day: 10.0 Smoking status: Current every day smoker Tobacco type: cigarettes Alcohol intake: former Substance use: never Substance use type: does not use Do You Feel Safe in your Home?: Yes Lack of Transportation: No Lack of Food: Never True Current Housing: I Have Housing Concerned About Future Housing: No Difficulty Paying Gas/Electric Bills: No Difficulty Paying for Meds: No Currently Unemployed: No Education: High School Diploma/GED Difficulty w/ Childcare or Family Care: No Living arrangements: alone Spiritual care concerns: No Comments At time of signature, agree with nursing past medical, surgical, social and family history. There is no relevant family history pertinent to the presenting complaint Exam Narrative: GENERAL: Well-appearing, well-nourished, and in no acute distress. HEAD: Normocephalic, atraumatic. EYES: PERRLA, conjunctivae clear, and EOMI. ENT: Mucous membranes moist. Oropharynx without edema, erythema or lesions. NECK: Supple. No lymphadenopathy CHEST: Clear to auscultation. No respiratory distress. HEART: Regular rate and rhythm. SKIN: Warm, dry. Urticarial rash noted to the abdomen arms, legs NEURO: Alert and oriented x3. PSYCH: Normal mood and affect Course Course Emergency Course: Discussed treatment options including and antihistamines or glucocorticoid. Patient was prefer to do steroids, he is diabetic and uses insulin pump. He understands that his blood sugar might increase in he will need to control it accordingly. Patient is aware of diagnosis, understands and agrees to treatment plan. Anticipatory guidance given. Patient agrees to follow-up as directed and is aware of reasons to seek care at the emergency department. Portions of this record may have been created with voice recognition software Level of Care: Express Care Visit Vital Signs Vital signs: Vital Signs Temperature 98.7 F 11/17/24 10:42 Pulse Rate 113 H 11/17/24 10:42 Respiratory Rate 16 11/17/24 10:42 Blood Pressure 150/99 H 11/17/24 10:42 Pulse Oximetry 99 11/17/24 10:42 Oxygen Delivery Room Air 11/17/24 10:42 Temperature 98.7 F 11/17/24 10:42 Pulse Rate 113 H 11/17/24 10:42 Respiratory Rate 16 11/17/24 10:42 Blood Pressure 150/99 H 11/17/24 10:42 Pulse Oximetry 99 11/17/24 10:42 Oxygen Delivery Room Air 11/17/24 10:42 Reviewed. MDM - Skin/Abscess/Foreign Bdy MDM Narrative Medical decision making narrative: Does not appear at this time to be erythema multiforme, bullous, SJS, TEN; no evidence at this time to suggest RMSF, endocarditis or Lyme disease; patient looks well, nontoxic and is tolerating oral intake; no neurologic signs or symptoms; no headache, photophobia or neck pain; afebrile; appropriate for initial outpatient treatment; discussed the importance of follow-up, patient agrees; question, viral exanthema, contact dermatitis, allergic dermatitis, eczema, urticaria. No soft palate or uvula edema, no tongue, lip edema or other mucosal involvement, no respiratory compromise, no stridor, no wheezing, no wheezing, no history of syncope, no hypotension, no nausea, vomiting, or diarrhea. Instructed patient to go to nearest ER immediately for any worsening symptoms including but not limited to: fever, spreading rash, pain, sore throat, headache, dizziness, chest pain, trouble breathing, or any symptoms concerning to the patient. Critical Care Time Critical Care Time Critical Care Time: No Discharge Plan Discharge Clinical Impression: Urticaria Patient Disposition: Home Condition: Stable Instructions: Urticaria (ED) Additional Instructions: Antihistamines are the best treatment for urticaria. You may take 1-3 tabs of Benadryl (diphenhydramine) every 6 hours - this medicine may make you tired, so know how it affects you before you drive, work, make important decisions. You may also take a non-drowsy antihistamine such as Zyrtec or Krystin once daily; you may double this dose for maximum effect. Medications that block stomach acid, such as Pepcid, also block histamine and can be helpful; take this once daily. If you have difficulty breathing, wheezing, swollen lips, swollen tongue, nausea, vomiting, diarrhea, pass out, have fever, itchy tongue, give difficulty swallowing please call 911 or go to the emergency room. Patient Language: Brazilian Prescriptions: No Action ondansetron HCl 4 mg tablet 4 mg PO Q8H PRN (Reason: nausea and vomiting) Qty: 20 1RF paroxetine HCl 20 mg tablet 20 mg PO DAILY (DME) Omnipod 5 G6-G7 Pods (Gen 5) Cartridge See Rx Instructions .ROUTE .MEDSUPPLY Qty: 45 2RF Rx Instructions: Change every 48hours atorvastatin 40 mg tablet 40 mg PO DAILY Qty: 90 1RF (DME) Dexcom G6 Sensor Device See Rx Instructions .Route Qty: 9 2RF Rx Instructions: As directed (DME) Dexcom G6 Transmitter Device See Rx Instructions .ROUTE .MEDSUPPLY Qty: 1 3RF Rx Instructions: Use to monitor glucose; change every 90 days cholecalciferol (vitamin D3) 50 mcg (2,000 unit) capsule 50 mcg PO DAILY Qty: 30 2RF dapagliflozin propanediol [Farxiga] 10 mg tablet 10 mg PO DAILY Qty: 90 1RF Trelegy Ellipta 100-62.5-25 mcg blister with device 1 inh inhalation DAILY Qty: 60 0RF insulin glargine [Lantus Solostar U-100 Insulin] 100 unit/mL (3 mL) insulin pen 45 unit SUBCUT DAILY PRN (Reason: insulin pump malfunction ) Qty: 15 1RF insulin lispro [Humalog U-100 Insulin] 100 unit/mL solution 120 unit continuous subcutaneous infusion DAILY Qty: 110 1RF lisinopril-hydrochlorothiazide 20-25 mg tablet 1 tablet PO DAILY Qty: 90 1RF metoprolol succinate 200 mg tablet extended release 24 hr 200 mg PO DAILY Qty: 90 1RF aspirin 81 mg tablet,delayed release (DR/EC) 81 mg PO DAILY pantoprazole 40 mg tablet,delayed release (DR/EC) 40 mg PO QHS Qty: 30 1RF famotidine [Pepcid] 20 mg tablet 20 mg PO BID 42 Days Qty: 84 0RF ondansetron 4 mg tablet,disintegrating 4 mg PO Q8H Qty: 12 0RF dicyclomine 10 mg capsule 10 mg PO TID Qty: 12 0RF polyethylene glycol 3350 [Miralax] 17 gram/dose powder 17 g PO BID Qty: 238 0RF senna 8.6 mg capsule 8.6 mg PO BID PRN (Reason: constipation) Qty: 14 0RF fluticasone propionate [Allergy Relief (fluticasone)] 50 mcg/actuation spray,suspension 1 spray intranasal DAILY Qty: 16 0RF Rx Instructions: administer into each nostril albuterol sulfate 90 mcg/actuation HFA aerosol inhaler See Rx Instructions .ROUTE .COMPLEX Qty: 18 1RF Dose Instruction: 1 PUFF INHALED EVERY 4 HOURS NEEDED FOR SHORTNESS OF BREATH OR WHEEZING Rx Instructions: 1 PUFF INHALED EVERY 4 HOURS NEEDED FOR SHORTNESS OF BREATH OR WHEEZING liraglutide [Victoza 3-Valerio] 0.6 mg/0.1 mL (18 mg/3 mL) pen injector 1.8 mg subcut .COMPLEX Qty: 18 1RF Rx Instructions: Start 0.6 mg once daily for 1 week, then increase 1.2mg daily for at least 1 week, then increase to 1.8mg daily Follow-up/Referrals: Mario Hartley MD [Primary Care Provider] - Time of Disposition: 11:04
[2024-11-17] MEDS: methylPREDNISolone SOD SUCC 125 MG VIAL IM (11:07)
== END 2024-11-17 11:25 | disposition home or self-care (01) ==
PROVIDERS: PCP Family Medicine
DX: L50.9 Urticaria, unspecified (principal); F17.210 Nicotine dependence, cigarettes, uncomplicated; J44.9 Chronic obstructive pulmonary disease, unspecified; E11.9 Type 2 diabetes mellitus without complications; E78.5 Hyperlipidemia, unspecified; I10 Essential (primary) hypertension; Z79.82 Long term (current) use of aspirin
CPT/HCPCS: 96372; 99213; G0463; J2919

== ENCOUNTER 2024-11-24 19:21 | Emergency (ER) | payer MEDICAID, SELFPAY ==
[2024-11-24 19:29] VITALS: BP 106/61; PULSE 84; RESP 20; TEMP 37.1; O2SAT 97
[2024-11-24 19:43] LABS: EDSTREPNEGPOS1 Negative (Negative)
--- NOTE | 2024-11-24 19:47 | ED.URI ---
HPI - URI/Sore Throat General Chief Complaint: Upper Respiratory Infection Stated Complaint: Sore Throat Time Seen by Provider: 11/24/24 19:40 Source: patient and RN notes reviewed Mode of arrival: ambulatory Limitations: no limitations History of Present Illness HPI Narrative: 44-year-old male presents [facility] complaining of sore throat since today. Patient denies any other upper respiratory symptoms, cough, fevers, body aches, chest pain, shortness of breath, chills, or any other symptoms. Patient is not taking the help with symptoms. Patient states he has history of COPD. Related Data Home Medications ?Medication ?Instructions ?Recorded ?Confirmed ?Last Taken ?Type aspirin 81 mg tablet,delayed 81 mg PO DAILY 10/24/23 11/24/24 Unknown History release paroxetine HCl 20 mg tablet 20 mg PO DAILY 04/05/24 11/24/24 Unknown History VITAMIN 11/24/24 Unknown History gabapentin 300 mg capsule mg 11/24/24 Unknown History Allergies Allergy/AdvReac Type Severity Reaction Status Date / Time Penicillins Allergy Severe Hives Verified 11/24/24 19:22 Review of Systems Review of Systems: CONSTITUTIONAL: Denies fever, chills, body aches, or sweats. EYES: Denies visual changes, redness, or discharge. ENT: Negative for rhinorrhea, congestion or otalgia. Positive for sore throat. CARDIOVASCULAR: Denies chest pain, palpitations, or edema. RESPIRATORY: Negative for cough, wheezing, dyspnea GASTROINTESTINAL: Denies abdominal pain, nausea, vomiting, or diarrhea. GENITOURINARY: Denies dysuria or hematuria. SKIN: Denies rash or itching. MUSCULOSKELETAL: Denies back pain, joint pain, or myalgia. NEUROLOGIC: Denies headache, numbness, or weakness. PSYCHIATRIC: Denies anxiety or depression. All other systems reviewed are negative, except as documented in HPI. [facility] Past Medical History Medical History COPD (chronic obstructive pulmonary disease) Treadmill stress test negative for angina pectoris Hyperlipidemia PTSD (post-traumatic stress disorder) Hypertension Diabetes Social History Social History Smoking packs per day: 0.5 Smoking cigarettes per day: 10.0 Smoking status: Current every day smoker Tobacco type: cigarettes Alcohol intake: former Substance use: never Substance use type: does not use Do You Feel Safe in your Home?: Yes Lack of Transportation: No Lack of Food: Never True Current Housing: I Have Housing Concerned About Future Housing: No Difficulty Paying Gas/Electric Bills: No Difficulty Paying for Meds: No Currently Unemployed: No Education: High School Diploma/GED Difficulty w/ Childcare or Family Care: No Living arrangements: alone Spiritual care concerns: No Comments At the time of my signature, I reviewed and agree with the nursing past medical, surgical, social, and family history. There is no relevant family history pertinent to the patient complaint. Exam Narrative: GENERAL: This is a well-nourished, well-developed adult, in no apparent distress. They are non ill-appearing, nontoxic appearing. HEAD: normocephalic, atraumatic. EYES: Sclera clear/white. Vision is grossly intact. Conjunctiva normal bilaterally. Extraocular movements intact. EARS: External ears normal, auditory canals clear and without drainage, TMs without erythema or perforation. Hearing grossly intact. NOSE: External nose normal with no obvious nasal discharge, nasal turbinates without redness or swelling, no exudate, no rhinorrhea. THROAT: Mucous membranes moist, posterior pharynx erythematous without exudate. Uvula is midline. Postnasal drip present. NECK: Neck supple, non-tender without lymphadenopathy, masses or thyromegaly. CARDIOVASCULAR: Regular rate and rhythm without murmurs, gallops, or rubs. RESPIRATORY: Clear to auscultation. Breath sounds equal bilaterally. No wheezes, rales, or rhonchi. Respiratory rate normal, respiratory effort nonlabored, no respiratory distress SKIN: warm, Dry, intact with no suspicious lesions or rash, good texture and turgor. NEURO: awake, alert, and oriented to person, place and time. There were no obvious focal neurologic abnormalities. EXTREMITIES: No joint tenderness, effusion, or edema noted. BACK: Nontender without deformity. Course Course Emergency Course: Portions of this record may have been created with voice recognition software Level of Care: Express Care Visit Vital Signs Vital signs: Vital Signs Temperature 98.7 F 11/24/24 19:29 Pulse Rate 84 11/24/24 19:29 Respiratory Rate 20 11/24/24 19:29 Blood Pressure 106/61 11/24/24 19:29 Pulse Oximetry 97 11/24/24 19:29 Oxygen Delivery Room Air 11/24/24 19:29 Temperature 98.7 F 11/24/24 19:29 Pulse Rate 84 11/24/24 19:29 Respiratory Rate 20 11/24/24 19:29 Blood Pressure 106/61 11/24/24 19:29 Pulse Oximetry 97 11/24/24 19:29 Oxygen Delivery Room Air 11/24/24 19:29 MDM - URI/Sore Throat MDM Narrative Medical decision making narrative: Rapid strep is negative. Throat culture pending. Likely viral pharyngitis. Discussed physical exam findings. Advised supportive measures and signs/symptoms to go to the ER. Pt is appropriate for outpt treatment and f/u. Differential Diagnosis Differential diagnosis: Likely upper respiratory infection, viral infection and pharyngitis (Strep or viral) Lab Data Attestation: I reviewed the patient's lab results. Labs: Lab Results 11/24/24 Range/Units 19:41 POC Grp A Strep Screen Negative (Negative) Discharge Plan Discharge Clinical Impression: Viral pharyngitis Patient Disposition: Home Condition: Stable Instructions: Pharyngitis (ED) Additional Instructions: Your rapid strep swab was negative today at [facility]. You will be notified in a few days if the culture comes back positive for strep, and appropriate antibiotics will be called in for you at that time. Your symptoms are likely due to a viral illness, which is not treated with antibiotics. Viral symptoms can be present for up to 10-14 days. Take Tylenol or ibuprofen for fever or pain. Rest and stay hydrated. Follow up with your PCP in 3-5 days if symptoms are not improving. Go to the ER immediately if you develop difficulty breathing or swallowing Patient Language: Belgian Prescriptions: No Action gabapentin 300 mg capsule VITAMIN paroxetine HCl 20 mg tablet 20 mg PO DAILY (DME) Omnipod 5 G6-G7 Pods (Gen 5) Cartridge See Rx Instructions .ROUTE .MEDSUPPLY Qty: 45 2RF Rx Instructions: Change every 48hours atorvastatin 40 mg tablet 40 mg PO DAILY Qty: 90 1RF (DME) Dexcom G6 Sensor Device See Rx Instructions .Route Qty: 9 2RF Rx Instructions: As directed (DME) Dexcom G6 Transmitter Device See Rx Instructions .ROUTE .MEDSUPPLY Qty: 1 3RF Rx Instructions: Use to monitor glucose; change every 90 days cholecalciferol (vitamin D3) 50 mcg (2,000 unit) capsule 50 mcg PO DAILY Qty: 30 2RF dapagliflozin propanediol [Farxiga] 10 mg tablet 10 mg PO DAILY Qty: 90 1RF Trelegy Ellipta 100-62.5-25 mcg blister with device 1 inh inhalation DAILY Qty: 60 0RF insulin glargine [Lantus Solostar U-100 Insulin] 100 unit/mL (3 mL) insulin pen 45 unit SUBCUT DAILY PRN (Reason: insulin pump malfunction ) Qty: 15 1RF insulin lispro [Humalog U-100 Insulin] 100 unit/mL solution 120 unit continuous subcutaneous infusion DAILY Qty: 110 1RF lisinopril-hydrochlorothiazide 20-25 mg tablet 1 tablet PO DAILY Qty: 90 1RF metoprolol succinate 200 mg tablet extended release 24 hr 200 mg PO DAILY Qty: 90 1RF aspirin 81 mg tablet,delayed release (DR/EC) 81 mg PO DAILY famotidine [Pepcid] 20 mg tablet 20 mg PO BID 42 Days Qty: 84 0RF dicyclomine 10 mg capsule 10 mg PO TID Qty: 12 0RF polyethylene glycol 3350 [Miralax] 17 gram/dose powder 17 g PO BID Qty: 238 0RF senna 8.6 mg capsule 8.6 mg PO BID PRN (Reason: constipation) Qty: 14 0RF fluticasone propionate [Allergy Relief (fluticasone)] 50 mcg/actuation spray,suspension 1 spray intranasal DAILY Qty: 16 0RF Rx Instructions: administer into each nostril liraglutide [Victoza 3-Valerio] 0.6 mg/0.1 mL (18 mg/3 mL) pen injector 1.8 mg subcut .COMPLEX Qty: 18 1RF Rx Instructions: Start 0.6 mg once daily for 1 week, then increase 1.2mg daily for at least 1 week, then increase to 1.8mg daily Follow-up/Referrals: Mario Hartley MD [Primary Care Provider] - Time of Disposition: 19:47
== END 2024-11-24 19:47 | disposition home or self-care (01) ==
PROVIDERS: PCP Family Medicine
DX: J02.8 Acute pharyngitis due to other specified organisms (principal); F17.210 Nicotine dependence, cigarettes, uncomplicated; J44.9 Chronic obstructive pulmonary disease, unspecified; I10 Essential (primary) hypertension; E11.9 Type 2 diabetes mellitus without complications; Z79.4 Long term (current) use of insulin; E78.5 Hyperlipidemia, unspecified; Z79.82 Long term (current) use of aspirin
CPT/HCPCS: 87081; 87880; 99213; G0463